=== PATIENT | female | born 1955 | race Caucasian/White ===

== ENCOUNTER 2019-04-08 07:16 | Inpatient (IN) ==
--- NOTE | 2019-03-18 10:37 | PAT Medication Instructions ---
Medication Instructions Date of Service March 18, 2019 Home Medications acetaminophen 1,500 mg PO Q6H PRN atorvastatin 20 mg PO PM duloxetine 60 mg PO QPM lisinopril 10 mg PO QPM meloxicam 15 mg PO QPM omeprazole 40 mg PO QPM pramipexole [Mirapex] 0.5 mg PO DAILY ASK your surgeon for instructions meloxicam 15 mg PO QPM STOP taking 24 hours before surgery pramipexole [Mirapex] 0.5 mg PO DAILY Take morning of surgery With a small sip of water, OTHERWISE NOTHING TO EAT OR DRINK AFTER MIDNIGHT: acetaminophen 1,500 mg PO Q6H PRN (okay to take up to 4 hours prior to surgery if needed) Take evening before surgery acetaminophen 1,500 mg PO Q6H PRN (if needed) atorvastatin 20 mg PO PM duloxetine 60 mg PO QPM lisinopril 10 mg PO QPM omeprazole 40 mg PO QPM Other Notes If you have any questions please call us at [phone] or [phone] or [phone] or [phone]
--- NOTE | 2019-03-19 13:59 | Anesthesiology Consultation ---
Date of Service March 19, 2019 Assessment & Plan (1) Encounter for pre-operative examination: Chart Review Chart Review: Acceptable Risk for Surgery and Patient seen in Pre Admission Testing Teaching & Discussion Pre-Anesthesia Teaching/Discussion Notes: Instructed NPO after midnight before surgery,except medications with 15 cc of water. Medication instructions provided according to the PAT guidelines. History Surgery Operation Date: 04/08/19 07:45 Proposed Procedures p L2-S1 Decompression and Fusion, Spinal Cord Monitoring - Ziyad Galvez DO Height/Weight Height: 5 ft Weight: 82.6 kg Allergies Allergy/AdvReac Type Severity Reaction Status Date / Time nickel Allergy Unknown RASH Verified 03/13/19 13:19 Penicillins Allergy Unknown HIVES Verified 03/13/19 13:19 Additional Notes: *Surgeon office/OR made aware of nickel reaction* Medications Home Medications Medication Instructions Recorded Confirmed Last Taken acetaminophen 1,500 mg PO Q6H PRN 03/13/19 03/13/19 Unknown atorvastatin 20 mg PO PM 03/13/19 03/13/19 Unknown duloxetine 60 mg PO QPM 03/13/19 03/13/19 Unknown lisinopril 10 mg PO QPM 03/13/19 03/13/19 Unknown meloxicam 15 mg PO QPM 03/13/19 03/13/19 Unknown omeprazole 40 mg PO QPM 03/13/19 03/13/19 Unknown pramipexole [Mirapex] 0.5 mg PO DAILY 03/13/19 03/13/19 Unknown Past Medical History Medical History Anxiety GERD (gastroesophageal reflux disease) controlled Hyperlipidemia Hypertension Obesity Restless leg syndrome Spinal stenosis Spondylolisthesis Exercise / Class Metabolic Activity III < 4 Walking/Shop/Light housework Past Surgical History Surgical History History of bunionectomy of both great toes History of carpal tunnel surgery of right wrist History of open reduction and internal fixation (ORIF) procedure LEFT History of partial hysterectomy History of total right knee replacement History of trigger finger X2 REPAIR Past Anesthesia History No Hx of Anesthesia Complications (except post-op nausea) and No Family Hx of Anesthesia Complications History of PONV No Hx of Motion Sickness and History of PONV (+ nausea) Social History Smoking Status: Never smoker Do You Dip or Chew Tobacco: No Hx Alcohol Use: No Hx Substance Use: No Review of Systems Patient denies chest pain, shortness of breath, cough, wheezing, palpitations. Physical Exam Vital Signs VITALS BP 134/83 P 94 TEMP 98.2 SP02 94%RA RESP 16 PHYSICAL Full neck and c-spine range of motion. Full TMJ range of motion. TMD 3.5 finger breaths Mallampati Score 1 Dentition: missing side, upper front bridge Lungs: clear throughout to auscultation Cardiac: regular rate and rhythm, no murmurs noted Spine: normal Carotid arteries: negative bruit Extremities: no edema Testing Laboratory Results 03/19/19 14:17 03/19/19 14:17 PT 10.1 Seconds (9.0-12.0) 03/19/19 14:17 INR 1.0 (0.9-1.1) 03/19/19 14:17 APTT 25.2 Seconds (21.0-31.0) 03/19/19 14:17 Urine Color Dark Yellow 03/19/19 14:17 Urine Appearance Clear (Clear) 03/19/19 14:17 Urine pH 5.0 (4.5-7.5) 03/19/19 14:17 Ur Specific Elizabeth 1.037 (1.000-1.030) H 03/19/19 14:17 Urine Protein Negative (Negative) 03/19/19 14:17 Urine Glucose (UA) Negative (Negative) 03/19/19 14:17 Urine Ketones Negative (Negative) 03/19/19 14:17 Urine Nitrite Negative (Negative) 03/19/19 14:17 Ur Leukocyte Esterase Negative (Negative) 03/19/19 14:17 Blood Type O Positive 03/19/19 14:17 Antibody Screen NEGATIVE 03/19/19 14:17 Electrocardiogram Date: 03/19/19 Findings: + NSR @ (88) Chest X-Ray Date: 03/19/19 There is no acute cardiopulmonary abnormality. An apparent density at the medial right lung base is likely artifactual. A repeat examination in one month's time is recommended for reassessment. Report sent to PCP for their reference.
--- NOTE | 2019-03-19 14:53 | XRay Report ---
TWO VIEW CHEST CLINICAL HISTORY: Preoperative examination. FINDINGS: PA and lateral chest radiographs are compared to study dated 12/24/2015. The cardiomediasti nal silhouette is unremarkable. There is no airspace consolidation typical for pneumonia or pleural e ffusion. Mild atelectasis is noted at the lung bases. An apparent density at the medial right lung ba se is likely artifactual. There is no pneumothorax. The skeletal structures are osteopenic. Degenerat jessie change and scoliosis are noted in the thoracic spine. The bony thorax appears intact. IMPRESSION: 1. There is no acute cardiopulmonary abnormality. 2. An apparent density at the medial right lung base is likely artifactual. A repeat examination in o ne month's time is recommended for reassessment. ACT 112: Negative or not required by law. Electronically signed by: Brady Rosenthal M.D. 03/19/2019 2:51 PM
[2019-03-19 14:54] LABS: Basophils # (auto) 0.01 K/uL (0-0.2); Basophils % (auto) 0.2 %; Eosinophils # (auto) 0.12 K/uL (0-0.5); Eosinophils % (auto) 2.3 %; Hematocrit (blood only) 43.8 % (37-47); Hemoglobin 14.7 g/dL (12.0-16.0); Immature Granulocytes # (auto) 0.01 K/uL (0.00-0.02); Immature Granulocytes % (auto) 0.2 %; Lymphocytes # (auto) 1.41 K/uL (1.2-3.4); Lymphocytes % (auto) 26.5 %; Mean Corpuscular Hgb Conc 33.6 g/dL (32-36); Mean Corpuscular Volume 92.4 fL (80-100); Mean Platelet Volume 10.9 fL (7.4-10.4); Monocytes # (auto) 0.18 K/uL (0.11-0.59); Monocytes % (auto) 3.4 %; Neutrophils % (auto) 67.4 %; Platelet Count 208 K/uL (130-400); RDW Standard Deviation 47.7 fL (36.4-46.3); Red Blood Count 4.74 M/uL (4.2-5.4); White Blood Count 5.33 K/uL (4.8-10.8)
[2019-03-19 14:55] LABS: Appearance Urine Clear (Clear); Bilirubin Urine Negative (Negative); Blood Urine Negative (Negative); Color Urine Dark Yellow; Glucose Urine UA Negative (Negative); Ketones Urine Negative (Negative); Leukocyte Esterase Urine Negative (Negative); Nitrite Urine Negative (Negative); Protein Urine Negative (Negative); Specific Gravity Urine 1.037 (1.000-1.030); Urobilinogen Urine Negative (Negative)
[2019-03-19 15:05] LABS: Partial Thromboplastin Ratio 0.9; Partial Thromboplastin Time 25.2 Seconds (21.0-31.0); Prothrombin Time 10.1 Seconds (9.0-12.0)
[2019-03-19 15:11] LABS: BUN Creatinine Ratio 28.1 (10-20); Calcium 9.3 mg/dl (8.5-10.1); Est GFR (African American) 101.3; Est GFR (Non-African American) 87.4
--- NOTE | 2019-03-19 15:22 | Electrocardiogram Report ---
Test Reason : Blood Pressure : / mmHG Vent. Rate : 088 BPM Atrial Rate : 088 BPM P-R Int : 148 ms QRS Dur : 082 ms QT Int : 372 ms P-R-T Axes : 062 002 011 degrees QTc Int : 450 ms Normal sinus rhythm Normal ECG When compared with ECG of 24-DEC-2015 15:15, No significant change was found Confirmed by Jorge Burger ([id number]) on 03/19/2019 3:21:49 PM Referred By: Ziyad Galvez Confirmed By:Jorge Burger
[~2019-04-08 07:16] MED LIST: CLINDAMYCIN 600 MG/54 ML BAG IV SCH; GABAPENTIN 600 MG DOSE PO SCH; LACTATED RINGER'S 1,000 ML IV SCH
[2019-04-08] MEDS ORDERED: MIDAZOLAM HCL 1 MG/ML 2ML VIAL ONE (08:10)
[2019-04-08] MEDS ORDERED: fentaNYL citrate 100 MCG/2 ML VIAL ONE (08:10)
[2019-04-08] MEDS ORDERED: ePHEDrine sulfate 50 MG/ML AMP IV PRN (08:44)
[2019-04-08] MEDS ORDERED: ONDANSETRON INJ 2 MG/ML 2 ML VIAL IV PRN ×2 (08:44→14:12)
[2019-04-08] MEDS ORDERED: HYDROmorphone INJ 2 MG/ML SYR/VIAL IV PRN (08:44)
[2019-04-08] MEDS ORDERED: METOCLOPRAMIDE HCL INJ 5 MG/ML 2 ML VIAL IV PRN ×2 (08:44→14:12)
[2019-04-08] MEDS ORDERED: ATROPINE SULFATE 0.1 MG/ML 10ML SYR IV PRN (08:44)
[2019-04-08] MEDS ORDERED: PROMETHAZINE HCL 12.5 MG in SODIUM CHLORIDE 0.9% 50 ML IV PRN ×2 (08:44→14:12)
--- NOTE | 2019-04-08 09:00 | History & Physical Bridge Note ---
Date of Service April 08, 2019 History & Physical Bridge Note I have examined the patient, reviewed the History & Physical and in the interval since the performance of the History & Physical I have noted the following changes of clinical significance: no changes noted
--- NOTE | 2019-04-08 09:02 | History & Physical Report ---
Date of Service April 08, 2019 Assessment & Plan (1) Neurogenic claudication due to lumbar spinal stenosis: L2-S1 decompression fusion Present on Admission?: Yes History of Present Illness Chief Complaint: Back and leg pain Primary Care Provider: Lulú Nowak PA-C This is a 63-year-old female that presents with chronic persistent back and leg pain after failing course of nonoperative care is here for surgical invention. Allergies Allergy/AdvReac Type Severity Reaction Status Date / Time nickel Allergy Unknown RASH Verified 04/08/19 07:53 Penicillins Allergy Unknown HIVES Verified 04/08/19 07:53 Home Medications Home Medications Medication Instructions Recorded Confirmed Type acetaminophen 1,500 mg PO Q6H PRN 03/13/19 04/08/19 History atorvastatin 20 mg PO PM 03/13/19 04/08/19 History duloxetine 60 mg PO QPM 03/13/19 04/08/19 History lisinopril 10 mg PO QPM 03/13/19 04/08/19 History meloxicam 15 mg PO QPM 03/13/19 04/08/19 History omeprazole 40 mg PO QPM 03/13/19 04/08/19 History pramipexole [Mirapex] 0.5 mg PO DAILY 03/13/19 04/08/19 History Past Med/Surg History Medical History Anxiety GERD (gastroesophageal reflux disease) controlled Hyperlipidemia Hypertension Obesity Restless leg syndrome Spinal stenosis Spondylolisthesis Surgical History History of bunionectomy of both great toes History of carpal tunnel surgery of right wrist History of open reduction and internal fixation (ORIF) procedure LEFT History of partial hysterectomy History of total right knee replacement History of trigger finger X2 REPAIR Social History Preferred Language: [place]at[place] Communication Ability: Effective Beliefs That Will Affect Care: None Current Living Situation: Spouse Feels Safe at Home: Yes Safety Concerns: Feels Safe At This Time Smoking Status: Never smoker Do You Dip or Chew Tobacco: No ; Second Hand Exposure: No ; Hx Alcohol Use: No Hx Substance Use: No Physical Exam Physical Exam: Patient is alert and oriented neurologically intact. Results & Data Vital Signs (Past 12 Hours) Vital Signs Temp Pulse Resp BP Pulse Ox 04/08/19 07:57 36.5 C 82 16 144/88 H 97
[2019-04-08] MEDS ORDERED: BACITRACIN INJ 50,000 UNIT VIAL ONE (09:06)
[2019-04-08] MEDS ORDERED: BUPIVACAINE/EPINEPHRINE 0.5% MPF 1:200,000 10 ML VIAL ONE (09:06)
[2019-04-08] MEDS ORDERED: HYDROmorphone INJ 2 MG/ML SYR/VIAL ONE (10:01)
[2019-04-08] MEDS ORDERED: LARYING-O-JET KIT (LTA) ONE (10:04)
[2019-04-08] MEDS ORDERED: LIDOCAINE HCL 2% 2 ML VIAL/AMP(20MG/ML) INFIL ONE (10:04)
[2019-04-08] MEDS ORDERED: PROPOFOL IV EMULSION 10 MG/ML 20 ML VIAL IV ONE (10:04)
[2019-04-08] MEDS ORDERED: PHENYLEPHRINE HCL 10 MG/ML VIAL ONE (10:04)
[2019-04-08] MEDS ORDERED: GLYCOPYRROLATE 0.2 MG/ML VIAL ONE (10:04)
[2019-04-08] MEDS ORDERED: ROCURONIUM BROMIDE 10 MG/ML 5 ML VIAL ONE (10:04)
[2019-04-08] MEDS ORDERED: ePHEDrine sulfate 50 MG/ML SYR ONE (10:04)
[2019-04-08] MEDS ORDERED: ONDANSETRON INJ 2 MG/ML 2 ML VIAL ONE (10:04)
[2019-04-08] MEDS ORDERED: NEOSTIGMINE METHYLSULFATE 1 MG/ML 10ML VIAL ONE (10:04)
[2019-04-08] MEDS ORDERED: DEXAMETHASONE SOD INJ 4 MG/ML VIAL ONE (10:04)
[2019-04-08] MEDS ORDERED: FLOSEAL HEMOSTATIC MATRIX 10ML TOP ONE (10:08)
--- NOTE | 2019-04-08 12:19 | Operative Report ---
Post Operative Report Pre & Post Diagnosis Operation Date: 04/08/19 09:05 Pre-Op Diagnosis: Lumbar spinal stenosis with neurogenic claudication Post-Op Diagnosis: Number spinal stenosis with neurogenic claudication I identified the patient and participated in the time-out.: Yes Procedure Operation Date: 04/08/19 09:05 Actual Procedures #1 lumbar decompression with bilateral medial facetectomies and foraminotomies L2-3, L3-4, L4-5 and L5-S1. #2 posterior spinal fusion L3-4, L4-5 and L5-S1. #3 placement posterior instrumentation L2-3 L3-4 L4-5 L5-S1. #4 interbody fusion L3-4 and L4-5. #5 placed a peek cage 8 x 22 mm at L3-4 and 11 x 22 mm at L5-S1. #6 placement locally harvested morselized autograft in the posterior lateral gutters. #7 placement infuse collagen sponge, master graft in the posterior lateral gutters and ostial amp interbody space. Surgeon Ziyad Galvez, DO Lip And Gate Builder Mahogany Hedrick Estimated Blood Loss 400 Findings See Below The patient is 5 foot tall weighing over 82 kg with a BMI in excess of 35. The patient's body habitus did add significant technical difficulty throughout the rectus procedure requiring her deepest retractors and longest instruments in order to perform her surgery. This added at least 25% increase to the operative time. Specimens None Indications This is a 63-year-old female who presents above-mentioned diagnosis after failing extensive course of nonoperative care elected to go with above-mentioned procedure. Description of Procedure Patient was met with identified informed consent obtained. Patient was then taken to the operative suite underwent intubation placed in a prone position the Lucas table on top of the Nasim frame. All bony prominences well-padded eyes inspected to ensure no external pressure placed upon the bed at this point the lumbar spine was prepped and draped in a sterile fashion. Sharp dissection with the assistance of Bovie cautery was performed down to and exposing the lamina and transverse processes of L2-L3-L4 L5 and the sacral ala bilaterally. From caudal cephalad fashion complete laminectomy of L5 L4 L3 and partial laminectomy of L2 was performed including bilateral medial facetectomies and foraminotomies addressing severe stenosis. Pedicle screws were then placed in L3-L4-L5 and the S1 levels bilaterally with assistance of fluoroscopy the purposes santiago placed. Believe a transforaminal approach and left complete discectomy of L5-S1 was performed endplates curetted to subcortical bleeding bone and a 11 x 22 mm peek cage filled with osteo-bone graft tapped position. I was not pleased with the position of the implant I felt it was too anterior however multiple attempts to pull the cage posterior failed and succeeded and only propagating the cage further anterior. Was located centrally there is no evidence of any vessel compression at this level. Subsequently opted to leave the cage in place versus any further damage. Then proceeded to L3-4 and again on the left complete discectomy performed endplates curetted to subcortical bleeding bone and this time an 8 x 22 mm peek cage with osteo-bone graft tapped in position. The rods were then locked into final position bilaterally. The transverse processes of L3-L4-L5 and the sacral ala burred to subcortical bleeding bone. Infuse collagen sponge master graft local autograft was then placed in the posterior lateral gutters. 15 round CIRA drain inserted. The incision was then closed with 1 Vicryl in the fascia 2-0 Vicryl subcutaneously and 4 Monocryl for final skin closure. Steri-Strip sterile dressings placed. Patient will continue to PACU stable condition. Please note Mahogany Hedrick present at the entire procedure involved the patient positioning complex portions of the surgery and final skin closure. Lastly spinal cord monitoring was utilized that the procedure no sosa ges noted. I attest to the content of the Intraoperative Record and any orders documented therein. Any exceptions are noted below.
--- NOTE | 2019-04-08 12:51 | Fluoroscopy Report ---
INTRAOPERATIVE RADIOGRAPHS CLINICAL HISTORY: L3-S1 spinal fusion. Fluoroscopy time: 36 seconds. FINDINGS: 2 spot fluoroscopic views of the lumbar spine are presented. There is been laminectomy with posterior fusion seen from L3-S1. There is been discectomy at L3-L4 and L5-S1. The orthopedic hardwa re appears intact. IMPRESSION: Intraoperative images from L3-S1 spinal fusion as above. Electronically signed by: Brady Rosenthal M.D. 04/08/2019 12:49 PM
[2019-04-08] MEDS: fentaNYL citrate 100 MCG/2 ML VIAL IV PRN ×3 (12:56→13:11)
[2019-04-08] MEDS ORDERED: ALUMINUM/MAGNESIUM SUSP 30 ML UDC PO PRN (14:12)
[2019-04-08] MEDS ORDERED: DO NOT ADMINISTER FLU VACCINE PRN (14:12)
[2019-04-08] MEDS ORDERED: HYDROmorphone INJ 0.5 MG/0.5 ML SYR IV PRN (14:12)
[2019-04-08] MEDS ORDERED: MAGNESIUM HYDROXIDE SUSP 30 ML UDC PO PRN (14:12)
[2019-04-08] MEDS ORDERED: ACETAMINOPHEN 500 MG TAB PO PRN (14:12)
[2019-04-08] MEDS ORDERED: bisacodyL 10 MG SUPP PR PRN (14:12)
[2019-04-08] MEDS ORDERED: SOD PHOSPHATE/SOD BIPHOSPHATE ENEMA 132 ML BTL PR PRN (14:12)
[2019-04-08] MEDS ORDERED: HYDROmorphone INJ 1 MG/ML SYRINGE IV PRN (14:12)
[2019-04-08] MEDS ORDERED: FAMOTIDINE 20 MG TAB PO PRN (14:12)
[2019-04-08] MEDS ORDERED: NALOXONE HCL 0.4 MG/1 ML VIAL/CARP IV PRN (14:12)
[2019-04-08] MEDS ORDERED: LORazepam 0.5 MG TAB PO PRN (14:12)
[2019-04-08] MEDS ORDERED: ACETAMINOPHEN 1,000 MG/100 ML VIAL IV PRN (14:12)
[2019-04-08] MEDS ORDERED: DO NOT ADMINISTER PNEUMOCOCCAL VACCINE PRN (14:12)
[2019-04-08] MEDS ORDERED: LORazepam 0.5 MG/1 ML VIAL IV PRN (14:12)
--- NOTE | 2019-04-08 14:24 | Anesthesiology Progress Note ---
Date of Service April 08, 2019 Anesthesia Post Procedure Vital Signs Vital Signs: Temp Pulse Pulse Pulse Resp BP Pulse Ox 04/08/19 13:55 36.6 C 93 H 16 119/74 92 04/08/19 13:30 83 12 119/71 93 04/08/19 13:20 36.8 C 69 14 104/71 95 04/08/19 13:10 78 16 104/69 95 04/08/19 13:00 58 L 16 106/64 95 04/08/19 12:50 70 16 94/44 L 96 04/08/19 12:40 77 16 94/46 L 98 04/08/19 12:33 36.3 C L 69 16 87/50 L 100 04/08/19 07:57 36.5 C 82 16 144/88 H 97 Pain Intensity Left Hip: Pain Intensity: 0 Bilateral Back: Pain Intensity: 7 Transfer of Care Handoff Completed per policy Notes Mental Status: alert / awake / arousable and participated in evaluation Patient Amnestic to Procedure: Yes Nausea / Vomiting: adequately controlled Pain: adequately controlled Airway Patency, RR, SpO2: stable & adequate BP & HR: stable & adequate Hydration State: stable & adequate Anesthetic Complications: no major complications apparent
[2019-04-08] MEDS: LACTATED RINGER'S 1,000 ML IV SCH (14:49)
[2019-04-08] MEDS: KETOROLAC TROMETHAMINE 15 MG/ML VIAL IV SCH ×2 (15:32→21:46)
[2019-04-08] MEDS: CLINDAMYCIN 600 MG in DEXTROSE 5% 50 ML IV SCH (15:32)
--- NOTE | 2019-04-08 16:14 | Hospitalist Consultation ---
Date of Consultation April 08, 2019 Assessment & Plan (1) Neurogenic claudication due to lumbar spinal stenosis: - POD#0 L2-S1 decompression and fusion by Dr. Galvez - activity and wound care orders as per ortho - pain control with bowel regimen - PT/OT - monitor H/H for acute blood loss anemia and transfuse blood products PRN - EBL 400 cc (2) Hypertension: -BP borderline low, will hold lisinopril and reevaluate tomorrow (3) Hyperlipidemia: -Continue statin (4) GERD (gastroesophageal reflux disease): -Continue PPI (5) Anxiety: (6) Depression: -Continue Cymbalta -Nurse reported that upon protocol suicide screen on admission, patient had reported thoughts of suicide however no plan. Patient denies this to me. Mental health consult placed per protocol. (7) DVT prophylaxis: -Teds/SCDs as per spine orthopedics Thank you for this consultation. We will follow the patient with you during their hospital stay. You can reach a [facility] via pager @ [phone]. 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 Galvez Attending Physician: Dr. Vanegas History of Present Illness 63-year-old female who is status post L2-S1 decompression and fusion today by Dr. Galvez. Postoperatively, the patient is doing well. She reports that she is having some postoperative incisional pain however it is currently controlled. Denies numbness or tingling to lower extremities. No chest pain or shortness of breath. Denies lightheadedness and dizziness. No abdominal pain or nausea. Sheikh catheter is in place draining clear yellow urine. Allergies Allergy/AdvReac Type Severity Reaction Status Date / Time nickel Allergy Unknown RASH Verified 04/08/19 07:53 Penicillins Allergy Unknown HIVES Verified 04/08/19 07:53 Home Medications Home Medications Medication Instructions Recorded Confirmed Type acetaminophen 1,500 mg PO Q6H PRN 03/13/19 04/08/19 History atorvastatin 20 mg PO PM 03/13/19 04/08/19 History duloxetine 60 mg PO QPM 03/13/19 04/08/19 History lisinopril 10 mg PO QPM 03/13/19 04/08/19 History meloxicam 15 mg PO QPM 03/13/19 04/08/19 History omeprazole 40 mg PO QPM 03/13/19 04/08/19 History pramipexole [Mirapex] 0.5 mg PO DAILY 03/13/19 04/08/19 History Patient History Medical History Anxiety Depression GERD (gastroesophageal reflux disease) controlled Hyperlipidemia Hypertension Obesity Restless leg syndrome Spinal stenosis Spondylolisthesis Surgical History History of bunionectomy of both great toes History of carpal tunnel surgery of right wrist History of open reduction and internal fixation (ORIF) procedure LEFT History of partial hysterectomy History of total right knee replacement History of trigger finger X2 REPAIR Family History Mother Breast cancer Social History Preferred Language: Kazakh Communication Ability: Effective Beliefs That Will Affect Care: None Current Living Situation: Spouse Feels Safe at Home: Yes Safety Concerns: Feels Safe At This Time Smoking Status: Never smoker Do You Dip or Chew Tobacco: No ; Second Hand Exposure: No ; Hx Alcohol Use: No Hx Substance Use: No Review of Systems Review of Systems: ROS per HPI, all other systems reviewed and negative Physical Exam Constitutional: WD/WN, vitals as above Eyes: PERRL, conjunctivae normal, anicteric sclerae ENMT: external ear and nose normal, oropharynx normal Respiratory: normal respiratory effort, lungs clear to auscultation Cardiovascular: Rate/Rhythm: regular rate and regular rhythm Vessels: normal peripheral pulses Extremities: no edema Gastrointestinal (Abdomen): normal bowel sounds, soft, nontender, no hepatosplenomegaly Musculoskeletal: no cyanosis or clubbing, extremities motor strength 5/5 S/p back surgery, pedal pushes and pulls strong bilaterally, drain in place draining bloody drainage Skin: no rashes, warm and dry Neurologic: PERRL, EOMI, accommodation nl, no face palsy, no dysarthria Psychiatric: A+Ox3, euthymic affect Results & Data ([facility]) Vital Signs (Past 12 Hours) Vital Signs Temp Pulse Pulse Pulse Resp BP Pulse Ox 04/08/19 14:55 36.2 C L 81 12 99/68 L 95 04/08/19 14:29 81 16 91/60 L 96 04/08/19 13:55 36.6 C 93 H 16 119/74 92 04/08/19 13:30 83 12 119/71 93 04/08/19 13:20 36.8 C 69 14 104/71 95 04/08/19 13:10 78 16 104/69 95 04/08/19 13:00 58 L 16 106/64 95 04/08/19 12:50 70 16 94/44 L 96 04/08/19 12:40 77 16 94/46 L 98 04/08/19 12:33 36.3 C L 69 16 87/50 L 100 04/08/19 07:57 36.5 C 82 16 144/88 H 97
[2019-04-08] MEDS ORDERED: LACTATED RINGER'S 500 ML IV ONE ×2 (19:14→20:13)
[2019-04-08 19:39] LABS: Hematocrit (blood only) 38.1 % (37-47); Hemoglobin 12.3 g/dL (12.0-16.0)
[2019-04-08] MEDS: ATORVASTATIN 20 MG TAB PO SCH (20:23)
[2019-04-08] MEDS: DULOXETINE HCL 60 MG CAP PO SCH (20:24)
[2019-04-08] MEDS: PANTOprazole 40 MG TAB PO SCH (20:24)
[2019-04-08] MEDS: DOCUSATE SODIUM/SENNA 50/8.6MG TAB PO SCH (20:24)
[2019-04-08] MEDS ORDERED: lisinopriL 10 MG TAB PO SCH (21:00)
[2019-04-09] MEDS ORDERED: PRAMIPEXOLE DIHYDROCHLO 0.5 MG TAB PO STA (00:08)
[2019-04-09] MEDS: CLINDAMYCIN 600 MG in DEXTROSE 5% 50 ML IV SCH (00:26)
[2019-04-09] MEDS: TRAMADOL HCL 50 MG TABLET PO PRN (00:45)
[2019-04-09] MEDS: LACTATED RINGER'S 1,000 ML IV SCH ×2 (01:25→10:44)
[2019-04-09] MEDS: KETOROLAC TROMETHAMINE 15 MG/ML VIAL IV SCH ×2 (03:55→08:48)
[2019-04-09] MEDS: POLYETHYLENE (MIRALAX) 17 GM PACK PO SCH ×3 (05:27→17:08)
[2019-04-09 07:01] LABS: Hematocrit (blood only) 31.5 % (37-47); Hemoglobin 10.2 g/dL (12.0-16.0); Immature Granulocytes # (auto) 0.02 K/uL (0.00-0.02); Immature Granulocytes % (auto) 0.1 %; Lymphocytes # (auto) 0.85 K/uL (1.2-3.4); Lymphocytes % (auto) 6.3 %; Mean Corpuscular Hemoglobin 30.5 pg (25-34); Mean Corpuscular Hgb Conc 32.4 g/dL (32-36); Mean Corpuscular Volume 94.3 fL (80-100); Mean Platelet Volume 10.2 fL (7.4-10.4); Monocytes # (auto) 0.53 K/uL (0.11-0.59); Monocytes % (auto) 3.9 %; Neutrophils # (auto) 12.12 K/uL (1.4-6.5); Neutrophils % (auto) 89.7 %; Platelet Count 174 K/uL (130-400); RDW Coefficient of Variation 14.6 % (11.5-14.5); RDW Standard Deviation 50.3 fL (36.4-46.3); Red Blood Count 3.34 M/uL (4.2-5.4); White Blood Count 13.52 K/uL (4.8-10.8)
[2019-04-09 07:38] LABS: BUN Creatinine Ratio 24.2 (10-20); Calcium 8.3 mg/dl (8.5-10.1); Creatinine Clr Calc Pharmacy 74.8 ml/min; Est GFR (African American) 99.7; Potassium 4.1 mmol/L (3.5-5.1)
--- NOTE | 2019-04-09 08:08 | Anesthesiology Progress Note ---
Date of Service April 09, 2019 Anesthesia Post Procedure Vital Signs Vital Signs: Temp Pulse Pulse Pulse Resp BP BP 04/09/19 07:54 96/59 L 04/09/19 07:32 104/70 04/09/19 07:00 36.7 C 86 16 90/57 L 04/09/19 03:17 36.8 C 89 20 93/59 L 04/09/19 00:30 36.7 C 116 H 20 108/72 04/08/19 23:12 36.8 C 104 H 20 95/61 L 04/08/19 21:43 76 96/61 L 04/08/19 21:05 106 H 122/67 04/08/19 20:01 96 H 83/53 L 90/57 L 04/08/19 19:02 82/52 L 74/45 L 04/08/19 18:56 36.4 C L 82 16 63/37 L 04/08/19 17:10 92 H 93/61 L 04/08/19 17:06 99/62 L 04/08/19 17:03 36.5 C 84 16 82/55 L 04/08/19 15:55 36.3 C L 71 12 90/58 L 04/08/19 14:55 36.2 C L 81 12 99/68 L 04/08/19 14:29 81 16 91/60 L 04/08/19 13:55 36.6 C 93 H 16 119/74 04/08/19 13:30 83 12 119/71 04/08/19 13:20 36.8 C 69 14 104/71 04/08/19 13:10 78 16 104/69 04/08/19 13:00 58 L 16 106/64 04/08/19 12:50 70 16 94/44 L 04/08/19 12:40 77 16 94/46 L 04/08/19 12:33 36.3 C L 69 16 87/50 L Pulse Ox 04/09/19 07:54 04/09/19 07:32 04/09/19 07:00 97 04/09/19 03:17 91 04/09/19 00:30 94 04/08/19 23:12 91 04/08/19 21:43 04/08/19 21:05 04/08/19 20:01 04/08/19 19:02 04/08/19 18:56 94 04/08/19 17:10 04/08/19 17:06 04/08/19 17:03 97 04/08/19 15:55 95 04/08/19 14:55 95 04/08/19 14:29 96 04/08/19 13:55 92 04/08/19 13:30 93 04/08/19 13:20 95 04/08/19 13:10 95 04/08/19 13:00 95 04/08/19 12:50 96 04/08/19 12:40 98 04/08/19 12:33 100 Pain Intensity Left Hip: Pain Intensity: 0 Bilateral Back: Pain Intensity: 6 Notes Mental Status: alert / awake / arousable and participated in evaluation Patient Amnestic to Procedure: Yes Nausea / Vomiting: adequately controlled Pain: adequately controlled Airway Patency, RR, SpO2: stable & adequate BP & HR: stable & adequate Hydration State: stable & adequate Anesthetic Complications: no major complications apparent and Pt Satisfied with anesthetic care
[2019-04-09] MEDS ORDERED: PRAMIPEXOLE DIHYDROCHLO 0.5 MG TAB PO SCH (09:00)
--- NOTE | 2019-04-09 09:52 | Hospitalist Progress Note ---
Date of Service April 09, 2019 Assessment & Plan (1) Neurogenic claudication due to lumbar spinal stenosis: - POD#1 L2-S1 decompression and fusion by Dr. Galvez - activity and wound care orders as per ortho - pain control with bowel regimen - PT/OT - monitor H/H for acute blood loss anemia and transfuse blood products PRN - EBL 400 cc (2) Hypertension: -BP borderline low, Bolus today then resume LR at 100, will hold lisinopril (3) Hyperlipidemia: -Continue statin (4) GERD (gastroesophageal reflux disease): -Continue PPI (5) Anxiety: (6) Depression: -Continue Cymbalta -Nurse reported that upon protocol suicide screen on admission, patient had reported thoughts of suicide however no plan. Patient denies this to me. Mental health consult placed per protocol. (7) DVT prophylaxis: -Teds/SCDs as per spine orthopedics Labs Checked ROS-No Headache, No Visual Changes, No Nausea, No Vomiting, No Fever, No Chills, No Neck Pain or Stiffness, No Chest Pain, No Palpitations, No SOB, No RAMOS, No Cough, No Sputum, No Wheezing, No Abdominal Pain, No Diarrhea, No Hematemesis, No Hemoptysis, No Unexpected Weight Loss, No Flank pain, No Melena, No Hematochezia, No Frequency, No Urgency, No Burning, No Hematuria, No Rashes, No Diaphoresis. Appetite is Normal, c/o sore back Physical Exam Gen-AAO x 3, NAD, Afebrile, obese Head-NCAT, EOMI, PERRLA, Anicteric Sclera, No Posterior Pharyngeal Erythema Neck-Supple, No JVD, No Thyromegaly, No Masses, No LAD, No Bruits Lungs-Clear to Auscultation Bilaterally, No Rales, No Rhonchi, No Wheezing, No Crepitus Chest-No S4, +S1, +S2, No S3, No Murmurs, No Rubs, No Gallops, No Ectopy Abdomen-Soft, Bowel Sounds Present, Non Tender, Non Distended, No Hepatomegaly, No Splenomegaly, No Palpable Masses, No Rebound, No Rigidity, No Guarding Musculoskeletal-Full Range of Motion Bilaterally, No CVAT Extremities-No Cyanosis, No Clubbing, No Edema Nuero-Cranial Nerves II-XII grossly intact, Motor WNL, DTRs WNL, Strength WNL, Non Focal Psych-Normal Mood. Admission and Anticipated Discharge Date Admission Date: April 08, 2019 Anticipated date of discharge: 04/11/19 Results & Data ([facility]) Vital Signs (Past 12 Hours) Vital Signs Temp Pulse Resp BP BP Pulse Ox 04/09/19 07:54 96/59 L 04/09/19 07:32 104/70 04/09/19 07:00 36.7 C 86 16 90/57 L 97 04/09/19 03:17 36.8 C 89 20 93/59 L 91 04/09/19 00:30 36.7 C 116 H 20 108/72 94 04/08/19 23:12 36.8 C 104 H 20 95/61 L 91
[2019-04-09] MEDS: OXYCODONE HCL IR 5 MG TAB (IMMEDIATE RELEASE) PO PRN ×2 (10:48→17:07)
[2019-04-09] MEDS: PRAMIPEXOLE DIHYDROCHLO 0.5 MG TAB PO SCH ×2 (11:54→20:13)
--- NOTE | 2019-04-09 13:41 | Orthopedic Progress Note ---
Date of Service April 09, 2019 Assessment & Plan (1) Neurogenic claudication due to lumbar spinal stenosis: At this time will initiate bed to chair as tolerated. Monitor her blood pressure and hopefully initiate physical therapy tomorrow. Present on Admission?: Yes Admission and Anticipated Discharge Date Admission Date: April 08, 2019 Anticipated date of discharge: 04/11/19 Subjective Patient's back pain is controlled. She denies any leg pain. Denies abdominal pain or nausea or vomiting. She is quite comfortable lying supine. Is able to sit up beside the bed but is been hypotensive since last evening. Physical Exam Physical Exam: On exam she has excellent strength testing full sensation to the lower extremities. She appears comfortable. Results & Data ([facility]) Vital Signs (Past 12 Hours) Vital Signs Temp Pulse Resp BP BP Pulse Ox 04/09/19 12:56 94 04/09/19 10:55 36.7 C 93 H 18 88/56 L 94 04/09/19 07:54 96/59 L 04/09/19 07:32 104/70 04/09/19 07:00 36.7 C 86 16 90/57 L 97 04/09/19 03:17 36.8 C 89 20 93/59 L 91
[2019-04-09] MEDS: PANTOprazole 40 MG TAB PO SCH (20:12)
[2019-04-09] MEDS: DOCUSATE SODIUM/SENNA 50/8.6MG TAB PO SCH (20:13)
[2019-04-09] MEDS: DULOXETINE HCL 60 MG CAP PO SCH (20:14)
[2019-04-09] MEDS: ATORVASTATIN 20 MG TAB PO SCH (20:14)
[2019-04-10] MEDS: POLYETHYLENE (MIRALAX) 17 GM PACK PO SCH ×4 (00:26→17:58)
[2019-04-10] MEDS: OXYCODONE HCL IR 5 MG TAB (IMMEDIATE RELEASE) PO PRN (00:37)
[2019-04-10] MEDS: LACTATED RINGER'S 1,000 ML IV SCH ×2 (00:39→06:37)
[2019-04-10 08:03] LABS: Hematocrit (blood only) 32.7 % (37-47); Hemoglobin 10.4 g/dL (12.0-16.0)
[2019-04-10] MEDS: PRAMIPEXOLE DIHYDROCHLO 0.5 MG TAB PO SCH ×2 (12:25→21:13)
--- NOTE | 2019-04-10 12:59 | Orthopedic Progress Note ---
Date of Service April 10, 2019 Assessment & Plan (1) Neurogenic claudication due to lumbar spinal stenosis: This time we will continue physical therapy. I am going to obtain a CAT scan lumbar spine to thoroughly assess her instrumentation vertically the 5 1 interbody construct. We will maintain the CIRA drain today. Present on Admission?: Yes Admission and Anticipated Discharge Date Admission Date: April 08, 2019 Anticipated date of discharge: 04/11/19 Subjective Patient's back pain is controlled leg symptoms are improved. She tolerated ambulation well today. Physical Exam Physical Exam: Patient is in the chair at the bedside is good strength testing. Full sensation lower extremities. Results & Data ([facility]) Vital Signs (Past 12 Hours) Vital Signs Temp Pulse Resp BP BP Pulse Ox 04/10/19 12:01 37.0 C 105 H 19 112/74 92 04/10/19 07:55 36.9 C 110 H 18 108/72 93 04/10/19 01:40 116/74
[2019-04-10] MEDS: TRAMADOL HCL 50 MG TABLET PO PRN (18:02)
--- NOTE | 2019-04-10 19:09 | Hospitalist Progress Note ---
Date of Service April 10, 2019 Assessment & Plan (1) Post-operative state: Doing well post-operatively. Management per Ortho. (2) Neurogenic claudication due to lumbar spinal stenosis: s/p back surgery. Doing well. Ambulating. (3) Hypertension: postoperative hypotension. Cont holding lisinopril and monitor. (4) GERD (gastroesophageal reflux disease): Continue PPI (5) Depression: continue Cymbalta. Pt was seen by psychiatric liaison nurse and felt to be low risk. She appears stable emotionally to me today. We did not go into the details of these thoughts. Good outpatient support in place per PLN reports. (6) DVT prophylaxis: SCDs, recommend DVT prophlaxis post-operatively when OK with surgery Full Dispo-per Ortho Yari Buenrostro DO [facility] Hospitalist Admission and Anticipated Discharge Date Admission Date: April 08, 2019 Anticipated date of discharge: 04/11/19 Subjective doing well pain manageable ambulating drain in place tolerating PO but apathetic to food Review of Systems Review of Systems: All systems reviewed & are unremarkable except as noted in Subjective Physical Exam Physical Exam: CONSTITUTIONAL: WNWD, vitals as above, generally well- appearing EYES: normal conjunctivae, no scleral icterus ENT: external ear and nose normal,MMM RESPIRATORY: clear to auscultation bilaterally, no crackles, rales or wheezes, normal respiratory effort CARDIOVASCULAR: regular rate and rhythm, S1 and 2 heard without murmurs, gallops or rubs, no JVD, no peripheral edema GASTROINTESTINAL: normal bowel sounds, soft, nontender, nondistended MUSCULOSKELETAL: strength 5/5 throughout, head is normocephalic and atraumatic, lower back surgical site covered with dressing, CIRA drain in place with bloody fluid. SKIN: warm and dry NEUROLOGIC: CN 2-12 grossly intact, no sensory deficit, normal cognition, normal speech, no gross focal deficits PSYCHIATRIC: alert cooperative and oriented to person, place and time. Results & Data ([facility]) Vital Signs (Past 12 Hours) Vital Signs Temp Pulse Pulse Resp BP Pulse Ox 04/10/19 15:14 37.3 C 106 H 16 100/66 91 04/10/19 12:01 37.0 C 105 H 19 112/74 92 04/10/19 07:55 36.9 C 110 H 18 108/72 93 Laboratory Results Short CBC 04/10/19 Range/Units 07:48 Hgb 10.4 L (12.0-16.0) g/dL Hct 32.7 L (37-47) % Medications Administered Current Inpatient Medications Acetaminophen (Tylenol) 1,000 mg PO Q8H PRN PRN Reason: MILD Pain Scale 1,2,3 & Pre PT Stop: 05/08/19 14:11 Al Hydrox/Mg Hydrox/Simethicone (Maalox) 30 ml PO Q6H PRN PRN Reason: Dyspepsia Stop: 05/08/19 14:11 Last Admin: 04/09/19 00:13 Dose: 30 ml Documented by: Atorvastatin Calcium (Lipitor) 20 mg PO PM DELPHINE Stop: 05/08/19 20:59 Last Admin: 04/09/19 20:14 Dose: 20 mg Documented by: Bisacodyl (Dulcolax) 10 mg MS DAILY PRN PRN Reason: Constipation Stop: 05/08/19 14:11 Diphenhydramine HCl (Benadryl Capsule) 25 mg PO Q6H PRN PRN Reason: Allergic Rhinitis/Insomnia Stop: 05/08/19 14:11 Duloxetine HCl (Cymbalta) 60 mg PO QPM DELPHINE Stop: 05/08/19 20:59 Last Admin: 04/09/19 20:14 Dose: 60 mg Documented by: Famotidine (Pepcid) 20 mg PO Q12H PRN PRN Reason: Dyspepsia Stop: 05/08/19 14:11 Last Admin: 04/09/19 01:31 Dose: 20 mg Documented by: Hydromorphone HCl (Dilaudid) 0.5 mg IV Q3H PRN PRN Reason: MOD pain (scale 4-6) & Pre PT Stop: 04/22/19 14:11 Hydromorphone HCl (Dilaudid) 1 mg IV Q3H PRN PRN Reason: severe pain (scale 7-10) Stop: 04/22/19 14:11 Hydroxyzine HCl (Vistaril) 25 mg PO Q8H PRN PRN Reason: Anxiety Stop: 05/08/19 14:11 Promethazine HCl 12.5 mg/ (Sodium Chloride) 50.5 mls @ 204 mls/hr IV Q6H PRN PRN Reason: Nausea &/or Vomiting Stop: 05/08/19 14:11 Lorazepam (Ativan) 0.5 mg in 1 mls @ 0.5 mls/min IV Q8H PRN PRN Reason: Sedation/Anxiety Stop: 05/08/19 14:11 Influenza Virus Vaccine Quadrival (Flu Vaccine, Do Not Administer) 1 ea N/A PRN PRN PRN Reason: Notification Stop: 05/08/19 14:11 Lisinopril (Zestril) 10 mg PO QPM DELPHINE Stop: 05/08/19 20:59 Lorazepam (Ativan) 0.5 mg PO Q8H PRN PRN Reason: Sedation/Anxiety Stop: 05/08/19 14:11 Magnesium Hydroxide (Milk Of Magnesia) 30 ml PO DAILY PRN PRN Reason: Constipation Stop: 05/08/19 14:11 Metoclopramide HCl (Reglan) 10 mg IV Q6H PRN PRN Reason: Nausea &/or Vomiting Stop: 05/08/19 14:11 Last Admin: 04/10/19 00:38 Dose: 10 mg Documented by: Naloxone HCl (Narcan) 0.1 mg IV Q5M PRN; Protocol PRN Reason: Oversedation/Resp Depression Stop: 05/08/19 14:11 Ondansetron HCl (Zofran) 4 mg IV Q6H PRN PRN Reason: Nausea &/or Vomiting Stop: 05/08/19 14:11 Ondansetron HCl (Zofran Odt) 4 mg PO Q6H PRN PRN Reason: Nausea Stop: 05/08/19 14:11 Oxycodone HCl (Roxicodone Immediate Rel) 5 - 10 mg PO Q4H PRN PRN Reason: Moderate-Severe Pain & Pre PT Stop: 04/22/19 14:11 Last Admin: 04/10/19 00:37 Dose: 10 mg Documented by: Pantoprazole Sodium (Protonix) 40 mg PO QPM DELPHINE Stop: 05/08/19 20:59 Last Admin: 04/09/19 20:12 Dose: 40 mg Documented by: Pneumococcal Polyvalent Vaccine (Pneumococcal Vacc, Do Not Administer) 1 ea N/A PRN PRN PRN Reason: Notification Stop: 05/08/19 14:11 Polyethylene Glycol (Miralax Powder Packet) 17 gm PO Q6 DELPHINE Stop: 05/09/19 05:59 Last Admin: 04/10/19 17:58 Dose: 17 gm Documented by: Pramipexole Dihydrochloride (Mirapex) 1 mg PO HS [facility] Stop: 05/09/19 20:59 Last Admin: 04/09/19 20:13 Dose: 1 mg Documented by: Pramipexole Dihydrochloride (Mirapex) 0.5 mg PO DAILY@1200 [facility] Stop: 05/09/19 11:59 Last Admin: 04/10/19 12:25 Dose: 0.5 mg Documented by: Senna/Docusate Sodium (Senokot S) 2 tab PO [facility] Stop: 05/08/19 20:59 Last Admin: 04/09/19 20:13 Dose: 2 tab Documented by: Sodium Biphosphate/Sodium Phosphate (Fleet Enema) 132 ml MS ONE PRN PRN Reason: Constipation Stop: 05/08/19 14:11 Tramadol HCl (Ultram) 50 - 100 mg PO Q4H PRN PRN Reason: Moderate-Severe Pain & Pre PT Stop: 05/08/19 14:11 Last Admin: 04/10/19 18:02 Dose: 100 mg Documented by:
[2019-04-10] MEDS: DULOXETINE HCL 60 MG CAP PO SCH (21:09)
[2019-04-10] MEDS: DOCUSATE SODIUM/SENNA 50/8.6MG TAB PO SCH (21:12)
[2019-04-10] MEDS: ATORVASTATIN 20 MG TAB PO SCH (21:12)
[2019-04-10] MEDS: PANTOprazole 40 MG TAB PO SCH (21:13)
[2019-04-10] MEDS ORDERED: SODIUM CHLORIDE 0.9% 1000ML 500 ML IV ONE (21:43)
[2019-04-11] MEDS: POLYETHYLENE (MIRALAX) 17 GM PACK PO SCH ×5 (00:04→23:04)
[2019-04-11] MEDS: ONDANSETRON 4 MG OD TAB PO PRN (00:12)
[2019-04-11 06:05] LABS: Hematocrit (blood only) 33.1 % (37-47); Hemoglobin 10.6 g/dL (12.0-16.0); Mean Corpuscular Hemoglobin 30.6 pg (25-34); Mean Corpuscular Volume 95.7 fL (80-100); Platelet Count 144 K/uL (130-400); RDW Coefficient of Variation 14.9 % (11.5-14.5); RDW Standard Deviation 51.8 fL (36.4-46.3); Red Blood Count 3.46 M/uL (4.2-5.4); White Blood Count 8.05 K/uL (4.8-10.8)
[2019-04-11 06:45] LABS: BUN Creatinine Ratio 12.7 (10-20); Calcium 8.8 mg/dl (8.5-10.1); Creatinine Clr Calc Pharmacy 83.7 ml/min; Est GFR (Non-African American) 94.9; Potassium 3.9 mmol/L (3.5-5.1)
--- NOTE | 2019-04-11 07:51 | Orthopedic Progress Note ---
Date of Service April 11, 2019 Assessment & Plan (1) Neurogenic claudication due to lumbar spinal stenosis: At this time we will continue physical therapy. I will await review of her CAT scan. Hopefully discharge home tomorrow. Present on Admission?: Yes Admission and Anticipated Discharge Date Admission Date: April 08, 2019 Anticipated date of discharge: 04/11/19 Subjective Patient's back pain is controlled leg pain markedly improved. She is having flatus but no bowel movement as of yet. Physical Exam Physical Exam: On exam she is good strength testing appears comfortable. Results & Data ([facility]) Vital Signs (Past 12 Hours) Vital Signs Temp Pulse Pulse Resp BP BP Pulse Ox 04/11/19 06:06 36.7 C 95 H 16 106/71 92 04/10/19 23:58 103 H 118/73 04/10/19 22:50 37.1 C 101 H 16 114/71 90 04/10/19 22:33 102 H 110/71 04/10/19 21:14 37.1 C 92 H 18 86/57 L 92
--- NOTE | 2019-04-11 09:17 | CT Scan Report ---
CT OF THE LUMBAR SPINE CLINICAL HISTORY: post op COMPARISON STUDY: Lumbar spine fluoroscopic images April 08, 2019. TECHNIQUE: Helical axial images of the lumbar spine were obtained. Sagittal and coronal reconstruct ions were viewed. Automated exposure control was utilized for the study. A dose lowering technique was utilized adhering to the principles of ALARA. FINDINGS: For purposes of numbering on this exam, the L5-S1 disc space is assigned to axial image 278 of 361. Note is made of mild levoscoliosis of the lumbar spine. Patient is status post L3-L4 and L5- S1 discectomies with interbody spacer placement. The L5-S1 spacer is anteriorly displaced with a port ion of the spacer extending anterior to the disc space. Posterior decompression is noted. Bilateral p edicle screws at the L3, L4, L5 and S1 levels are noted. The hardware is intact. Surgical drain is in place. There are no unexpected radiopaque foreign bodies. Central canal neural foramen are suboptima lly assessed by CT. As expected, there is fluid within the operative bed. Paravertebral soft tissues are unremarkable. IMPRESSION: 1. Status post L3-L4 and L5-S1 discectomies with interbody spacer placement. L5-S1 spacer anteriorly displaced with a portion of the spacer extending anterior to the disc space. 2. Posterior decompression with bilateral pedicle screw fusion from L3 through S1. Hardware intact. N o unexpected radiopaque foreign bodies. 3. Suboptimal evaluation of the central canal and neural foramen given CT technique. ACT 112: Negative or not required by law. Electronically signed by: Gilles Ruvalcaba M.D. 04/11/2019 9:15 AM
--- NOTE | 2019-04-11 11:22 | Hospitalist Progress Note ---
Date of Service April 11, 2019 Assessment & Plan (1) Post-operative state: (2) Neurogenic claudication due to lumbar spinal stenosis: Post op day# 3 S/P L2-S1 decompression and fusion by Dr. Galvez Pain controlled Ambulating -ortho has CT lumbar ordered and pending -pain management per ortho -wound management per ortho -PT/OT as appropriate -DVT prophylaxis per ortho -incentive spirometry -Hgb: stable at 10.6 (3) Hypertension: postoperative hypotension. Today BP: 106/71. Denies dizziness today. -Continue to hold lisinopril (4) GERD (gastroesophageal reflux disease): -Continue PPI (5) Depression: -continue Cymbalta. -Pt was seen by psychiatric liaison nurse and felt to be low risk. Good outpatient support in place per PLN reports. -Pt denies suidical ideations today (6) DVT prophylaxis: SCDs, recommend DVT prophlaxis post-operatively when OK with surgery Full Dispo-per Ortho Pt was seen and care coordinated with Dr Buenrostro. See addendum Admission and Anticipated Discharge Date Admission Date: April 08, 2019 Anticipated date of discharge: 04/11/19 Supervising Physician Co-Signing Physician Notes I have seen and examined the patient and have discussed the case with the provider above. I agree with the assessment and plan as stated. 63 yo F POD 3 s/p back surgery. Improved overall and ambulating with walker. BP improved post-operatively. Cont to hold lisinopril as above. Physical exam consistent with that above. Cont current care plan per Orthopedics. Porter, DO Subjective doing well today pain well managed somewhat distressed over awaiting CT findings expresses this process of having surgery was more than she anticipated. Review of Systems Review of Systems: All systems reviewed & are unremarkable except as noted in Subjective Physical Exam Physical Exam: CONSTITUTIONAL: WNWD, vitals as above, generally well- appearing EYES: normal conjunctivae, no scleral icterus ENT: external ear and nose normal,MMM RESPIRATORY: clear to auscultation bilaterally, no crackles, rales or wheezes, normal respiratory effort CARDIOVASCULAR: regular rate and rhythm, S1 and 2 heard without murmurs, gallops or rubs, no JVD, no peripheral edema GASTROINTESTINAL: normal bowel sounds, soft, nontender, nondistended MUSCULOSKELETAL: strength 5/5 throughout, head is normocephalic and atraumatic, lower back surgical site covered with dressing, CIRA drain in place with bloody fluid. SKIN: warm and dry NEUROLOGIC: CN 2-12 grossly intact, no sensory deficit, normal cognition, normal speech, no gross focal deficits PSYCHIATRIC: alert cooperative and oriented to person, place and time. Results & Data ([facility]) Vital Signs (Past 12 Hours) Vital Signs Temp Pulse Pulse Resp BP Pulse Ox 04/11/19 06:06 36.7 C 95 H 16 106/71 92 04/10/19 23:58 103 H 118/73
[2019-04-11] MEDS: PRAMIPEXOLE DIHYDROCHLO 0.5 MG TAB PO SCH ×2 (11:40→21:36)
[2019-04-11] MEDS: OXYCODONE HCL IR 5 MG TAB (IMMEDIATE RELEASE) PO PRN (18:23)
[2019-04-11] MEDS: DOCUSATE SODIUM/SENNA 50/8.6MG TAB PO SCH (21:36)
[2019-04-11] MEDS: DULOXETINE HCL 60 MG CAP PO SCH (21:36)
[2019-04-11] MEDS: PANTOprazole 40 MG TAB PO SCH (21:36)
[2019-04-11] MEDS: ATORVASTATIN 20 MG TAB PO SCH (21:36)
[2019-04-12] MEDS: ONDANSETRON 4 MG OD TAB PO PRN (00:24)
[2019-04-12] MEDS: OXYCODONE HCL IR 5 MG TAB (IMMEDIATE RELEASE) PO PRN ×2 (06:21→12:20)
[2019-04-12] MEDS: PRAMIPEXOLE DIHYDROCHLO 0.5 MG TAB PO SCH (12:20)
--- NOTE | 2019-04-12 13:34 | Discharge Summary ---
Date of Service April 12, 2019 Admission HPI Per Admitting Provider This is a 63-year-old female that presents with chronic persistent back and leg pain after failing course of nonoperative care is here for surgical invention. Principal Diagnosis Lumbar spinal stenosis with neurogenic claudication Discharge Data Allergies Allergy/AdvReac Type Severity Reaction Status Date / Time nickel Allergy Unknown RASH Verified 04/08/19 07:53 Penicillins Allergy Unknown HIVES Verified 04/08/19 07:53 Consultations 04/08/19 14:12 Consult Case Management - Discharge Planning Routine Consult Hospitalist Routine 04/08/19 14:44 Consult Behavioral Health Liaison Routine Procedures Performed Operation Date: 04/08/19 09:05 Actual Procedures p L2-S1 Decompression and Fusion, application of osteamp, application of infuse, Spinal Cord Monitoring(Not Applicable) - Ziyad Galvez DO Ordered Studies 04/08/19 09:05 FL fluoroscopy <1hr Routine FL lumbar spine 2-3V Routine 04/11/19 08:30 CT lumbar spine wo con Routine Hospital Course (1) Neurogenic claudication due to lumbar spinal stenosis: Patient went lumbar decompression fusion tolerated as well as taken the orthopedic floor postoperative. Postop day 1 she was somewhat hypotensive which shows for very modest activity that day however the following day she began to improve hematocrit was stable we continue with physical therapy throughout the week. CIRA drain decreasing appropriately. Her function becoming markedly improved Final day of service of the hospital stay she had excellent strength testing was quite comfortable CIRA drain decreased probably. Subsequent discharge home. Discharge orders and instructions from the chart for further view. Total Time Total Time Spent Total Time Spent (In Minutes): 20 minutes Discharge Plan Discharge Items Patient Disposition: Home - Self-Care Reason For Visit: LUMBAR SPINAL STENOSIS WO NEUROGENIC CLAUDICATION Discharge Diagnosis: Lumbar spinal stenosis with neurogenic claudication Activity: As commented below Non-emergency contact: Primary Care Provider Call non-emergency contact if: you have any medication questions Follow-up/Referrals: Lulú Nowak PA-C [Primary Care Provider] - 04/15/19 3:00 pm (Please arrive for your appointment by 2:45p.m. If you need to reschedule this appointment, please call [phone].) Diet: Regular Addtl Attending Provider Instructions: ACTIVITY RECOMMENDATIONS: SELF CARE INSTRUCTIONS AFTER THORACIC/LUMBAR FUSIONS 1. You may walk to your tolerance. It is good exercise for your legs and back. Expect some back and intermittent leg aches and pains. 2. You may perform "counter-top" level activities (make a sandwich, evaristo with a project, etc.). 3. No bending or lifting of more than 10 pounds or back twisting of any nature (roll like a log when turning in bed). 4. You may ride in a car for 20-30 minutes at a time. No driving until after your first visit with your doctor. 5. Frequent changes of position and restricting sitting to 30 minutes at a time will help limit the amount of back spasms and stiffness you may experience. 6. You may discontinue the use of ambulatory aids (cane, crutches, etc.) once your strength and confidence allow. 7. You may manager supply chain the shower and let water strike your incision when you arrive home at least once daily. Do not take a tub bath, sit in a hot tub or go into a swimming pool until after your first recheck in the office. SPECIAL CARE INSTRUCTIONS: VERY IMPORTANT TO READ AND REVIEW A. Your surgical incision has been closed with a cosmetic suture under the skin that will dissolve in about 6 weeks. In 14 days, you can use a pair of clean scissors and cut the suture that is left outside of the skin at the ends of your incision. 1. The small skin tapes can be removed 7 days after surgery if they have not fallen off by that point. 2. You may keep the wound open to air as much as possible to promote healing after post-op day number 5 unless told otherwise by your doctor. 3. If you think the wound looks like it is becoming infected (redness or worsening drainage) and/or you are experiencing fever, chill or worsening back pain and muscle spasms, contact the office so that we may evaluate you as soon as possible. B. Complications are uncommon, but please contact us if you have any signs or symptoms of: 1. wound infection (fever higher than 102.5 degrees F, redness, separation of wound, drainage, or increasing pain from the incision) 2. blood clots in legs (pain, swelling, redness and warmth in legs) 3. urinary tract infection (fever higher than 102.5 degrees F, burning upon urination or increased frequency of urination) 4. nerve problems (inability to walk on your toes or heels, numbness, loss of bowel or bladder control) 5. any other symptoms that concern you C. Please call the office at if you have any concerns or questions about your operation or recovery. D. No smoking! Smoking drastically decreases the chance of a solid fusion. E. Do not take any anti-inflammatory medications (Indocin, Advil, Motrin, Aspirin, Naprosyn, etc.) as these may inhibit the chance of a solid fusion. Tylenol is okay to take for pain. MANAGING PAIN AFTER SPINAL SURGERY 1. Narcotic medication is intended for short-term use and will be provided for surgical pain. Surgical pain usually lasts for a period of 4-6 weeks. Narcotic medication includes Percocet, Vicodin, Darvocet, Tylenol #3 or Lortab. 2. Longer-term pain is more appropriately treated with non-narcotic medication such as Tylenol ES. 3. Muscle spasm is not appropriately treated with narcotics. Muscle relaxers such as Soma, Flexeril or Skelaxin can be used along with Tylenol ES. 4. Remember that we all live with some "aches and pains". This is not unusual or uncommon after an injury or as we get older. a. Back pain is expected and may include muscle spasms for 4 to 6 weeks after surgery. The pain should gradually improve. If the pain worsens for no apparent reason, please contact the office. b. Intermittent leg pain may also be experienced and should not be concerned about unless it worsens for no apparent reason. If so, please contact the office. 5. We will provide appropriate medication within the normal guidelines of their prescribed use. We will also be very cautious and aware of potential abuse and extended duration of patients' medication needs. a. Pain medications are for your comfort and to assist with sleep and rest so that the tissue can heal. They are not provided in order to return to normal activity and should not be used through the day. To do so or worsening pain at night can result from ongoing tissue damage and develo pment of tolerance to the prescribed medicine. 6. Please allow 2-3 days to process refills. Prescriptions will not be mailed but must be picked up at the office. FOLLOW UP VISIT: Keep your scheduled follow-up appointment. Any questions, please call the office at . Pending Studies at Discharge: No Stand-Alone Forms: My [facility], Opioid Pain Management, Smoking Cessation Medications and DC Order Prescriptions: New oxycodone 5 mg tablet 5 mg PO Q6H PRN (Reason: pain, severe) Qty: 30 RF: 0 tramadol 50 mg tablet 50 mg PO Q6H PRN (Reason: pain, moderate) Qty: 30 RF: 0 Continued atorvastatin 20 mg Tablet 20 mg PO PM RF: 0 meloxicam 15 mg Tablet 15 mg PO QPM RF: 0 omeprazole 40 mg Capsule,Delayed Release(Dr/Ec) 40 mg PO QPM RF: 0 pramipexole [Mirapex] 0.5 mg Tablet 0.5 mg PO DAILY RF: 0 lisinopril 10 mg Tablet 10 mg PO QPM RF: 0 duloxetine 60 mg Capsule,Delayed Release(Dr/Ec) 60 mg PO QPM RF: 0 acetaminophen 500 mg Tablet 1,500 mg PO Q6H PRN (Reason: Pain) RF: 0 Discharge Orders: Discharge Order (Routine); Ordered 04/12/19 Ordered By: Ziyad Freed/Other Patient Handouts: Surgery Prevent DVT After, ED Stockings Chidi Admission Data Admit Date/Time: 04/08/19 14:03 Attending Provider: Ziyad Galvez Admit Provider: Ziyad Galvez Primary Care Provider: Lulú Nowak Other Providers: Yari Buenrostro. Other Interventions: Discharge Summary Assessment (RN) Last Done: 04/12/19 11:48 DC Date/Time DO NOT enter until pt leaves facility: 04/12/19 13:00
== END 2019-04-12 13:00 | disposition home or self-care (01) | DRG 454 ==
LOC: ASU 07:16 → 3E 14:03

== ENCOUNTER 2024-01-01 08:49 | Inpatient (IN) ==
--- NOTE | 2023-12-19 09:13 | PAT Medication Instructions ---
Medication Instructions Date of Service December 19, 2023 Home Medications acetaminophen 500 mg tablet 1,500 mg PO Q6H PRN atorvastatin 20 mg tablet 20 mg PO HS duloxetine 60 mg capsule,delayed release 60 mg PO HS lisinopril 10 mg tablet 10 mg PO QPM meloxicam 15 mg tablet 15 mg PO QPM ropinirole 1 mg tablet 2 mg PO HS Vitamin K With D3 1 tab PO BID multivitamin 1 tab PO DAILY pramipexole 1.5 mg tablet 1.5 mg PO QDL Continue as directed pramipexole 1.5 mg tablet 1.5 mg PO QDL ASK your surgeon for instructions meloxicam 15 mg tablet 15 mg PO QPM STOP taking 2 weeks before surgery (or as soon as possible if surgery is within 2 weeks) Vitamin K With D3 1 tab PO BID DO NOT take the morning of surgery multivitamin 1 tab PO DAILY Take morning of surgery With a small sip of water, OTHERWISE NOTHING TO EAT OR DRINK AFTER MIDNIGHT: acetaminophen 500 mg tablet 1,500 mg PO Q6H PRN(if needed) Take evening before surgery acetaminophen 500 mg tablet 1,500 mg PO Q6H PRN(if needed) atorvastatin 20 mg tablet 20 mg PO HS duloxetine 60 mg capsule,delayed release 60 mg PO HS lisinopril 10 mg tablet 10 mg PO QPM ropinirole 1 mg tablet 2 mg PO HS Other Notes If you have any questions please call us at [phone] or [phone] or [phone] or [phone]
--- NOTE | 2023-12-21 10:11 | Anesthesiology Consultation ---
Date of Service December 21, 2023 Assessment & Plan (1) Encounter for pre-operative examination: Chart Review Chart Review: Acceptable Risk for Surgery (pending PCP clearance ) and Patient seen in Pre Admission Testing - Awaiting PCP clearance 12/28/23 (Lulú GARDINER) - please fax preop testing to PCP for review Per PAT appt on 12/21/23, no recent illness/disease exposures, illness related symptoms, or recent illness/disease positive tests. Will leave to surgeon's discretion if preop Covid testing needed Right Hip Endoscopic Bursectomy 06/07/22= Done under [facility] with Grade 1 view with MAC #3. ETT #7. Atraumatic DL x 1 Teaching & Discussion Pre-Anesthesia Teaching/Discussion Notes: Instructed NPO after midnight before surgery,except medications with 15 cc of water. Medication instructions provided according to the [facility] guidelines. History Surgery Operation Date: 01/01/24 10:05 Proposed Procedures p T11- L2 Decompression and Fusion, Spinal Cord Monitoring - Ziyad Galvez DO s Spinal Cord Stimulator Removal - Ziyad Galvez DO Height/Weight Height: 5 ft Weight: 78.7 kg Allergies Allergy/AdvReac Type Severity Reaction Status Date / Time nickel Allergy Intermediate Rash Verified 12/18/23 12:31 Penicillins Allergy Intermediate Hives Verified 12/18/23 12:31 Medications Home Medications Medication Instructions Recorded Confirmed Last Taken acetaminophen 500 mg tablet 1,500 mg PO Q6H PRN Pain 03/13/19 12/18/23 02/05/20 04:00 atorvastatin 20 mg tablet 20 mg PO HS 03/13/19 12/18/23 06/06/22 duloxetine 60 mg capsule,delayed 60 mg PO HS 03/13/19 12/18/23 06/06/22 release lisinopril 10 mg tablet 10 mg PO QPM 03/13/19 12/18/23 06/06/22 meloxicam 15 mg tablet 15 mg PO QPM 03/13/19 12/18/23 06/06/22 ropinirole 1 mg tablet 2 mg PO HS 06/07/22 12/18/23 06/06/22 Vitamin K With D3 1 tab PO BID 12/18/23 12/18/23 Unknown multivitamin 1 tab PO DAILY 12/18/23 12/18/23 Unknown pramipexole 1.5 mg tablet 1.5 mg PO QDL 12/18/23 12/18/23 Unknown Past Medical History Medical History Anxiety and depression DJD (degenerative joint disease) GERD (gastroesophageal reflux disease) well controlled and stable Hiatal hernia History of COVID-24 Jan 2022 > not hospitalized History of stomach ulcers x2- no recent issues HTN (hypertension) Hyperlipidemia Obesity Osteoarthritis PONV (postoperative nausea and vomiting) Postoperative hypoxia "has happened more than one time" as per patient Restless leg syndrome Spinal cord stimulator status instructed to bring remote Spinal stenosis Spondylolisthesis Exercise / Class Metabolic Activity II 4-5 Yardwork/Stairs/Walk up hill (one flight of stairs - no chest pain or SOB) Past Family History Family History Mother Breast cancer Past Surgical History Surgical History (Updated 12/21/23 @ 10:59 by Anusha Hannah PA-C) History of arthroscopy left ankle History of bilateral tubal ligation History of breast biopsy right > benign History of bunionectomy of both great toes History of carpal tunnel surgery of right wrist History of esophagogastroduodenoscopy (EGD) History of hip surgery Right Hip Endoscopic Bursectomy 06/07/22= Done under [place] with Grade 1 view with MAC #3. ETT #7. Atraumatic DL x 1 History of lumbar laminectomy History of lumbar spinal fusion L2-S1 decompression/fusion: 04/08/2019: Grade view 3, MAC #3.0, ETT 7.0 at [facility] History of partial hysterectomy History of tooth extraction History of total right knee replacement (TKR) History of trigger finger with release right hand x2 Past Anesthesia History No Hx of Anesthesia Complications (with exception to PONV, post operative hypoxia for some surgeries, hx of post operative hypotension (see below)) and No Family Hx of Anesthesia Complications Patient reports post-op hypotension after lumbar fusion 04/08/19 at [facility]. Per anesthesia post-progress note: "no major complications apparent and Pt Satisfied with anesthetic care." BP range appear ~90's/60's with as low as 63/37 at 18:56-- medically managed. Per discharge summary, "Postop day 1 she was somewhat hypotensive which shows for very modest activity that day however the following day she began to improve hematocrit was stable we continue with physical therapy throughout the week." (Patient denies issues with subsequent surgeries) History of PONV No Hx of Motion Sickness and History of PONV (improved with pre operative anti nausea/vomiting ) Social History Smoking Status: Never smoker Do You Dip or Chew Tobacco: No Hx Alcohol Use: No Hx Substance Use: No substance use type: does not use Review of Systems - Hx of snoring (only when on back)- hx of sleep study many years ago- no MELVIN at that time Patient denies chest pain, shortness of breath, dyspnea on exertion, cough, wheezing, palpitations. No hx of seizures, stroke, VT. No hx of blood clots or blood transfusions Physical Exam Vital Signs VITALS BP 117/78 P 76 TEMP 98.5 SP02 95% RESP 16 Constitutional no acute distress ENMT Mouth: no TMJ clicking Thyromental Distance: > or= 3.5 Finger Breadths (3.5) Mallampati Class: I Top front permanent bridge Neck + limited neck extension Respiratory normal respiratory effort; no respiratory distress Auscultation: lungs clear to auscultation bilaterally; no wheezes Cardiovascular Rate/Rhythm: regular rate and regular rhythm Heart Sounds: no murmur Vessels: no carotid bruit Musculoskeletal Spine: + pain with cervical ROM (mild/stiffness) Extremities: extremities normal to inspection Psychiatric Orientation: alert Lab Results Anesthesia Preop Results Results Anesthesia Widget: WBC 6.01 K/ul (4.8-10.8) 12/21/23 Hgb 14.3 g/dl (12.0-16.0) 12/21/23 Hct 42.8 % (37.0-47.0) 12/21/23 Plt 184 K/uL (130-400) 12/21/23 Na 140 mmol/L (136-145) 12/21/23 K 4.3 mmol/L (3.5-5.1) 12/21/23 Cl 107 mmol/L (98-107) 12/21/23 CO2 28 mmol/L (21-32) 12/21/23 BUN 27 mg/dl (6-23) H 12/21/23 Creat 0.62 mg/dl (0.6-1.2) 12/21/23 Glucose Level 84 mg/dl (70-99(Fasting)) 12/21/23 PT 10.2 Seconds (9.0-12.0) 12/21/23 PTT 26 Seconds (21-31) 12/21/23 INR 0.9 (0.9-1.1) 12/21/23 Urine Color Dark Yellow 12/21/23 Urine Appearance Clear (Clear) 12/21/23 Urine pH 5.5 (4.5-7.5) 12/21/23 Urine Specific [place] 1.030 (1.000-1.030) 12/21/23 Urine Protein Negative (Negative) 12/21/23 Urine Glucose (UA) Negative (Negative) 12/21/23 Urine Ketones Trace (Negative) H 12/21/23 Urine Blood Negative (Negative) 12/21/23 Urine Nitrite Negative (Negative) 12/21/23 Urine Bilirubin Negative (Negative) 12/21/23 Urine Urobilinogen Negative (Negative) 12/21/23 Urine Leukocyte Esterase Trace (Negative) H 12/21/23 Urine WBC (Auto) 0-5 /hpf (0-5) 12/21/23 Urine RBC (Auto) 0-2 /hpf (0-2) 12/21/23 Urine Hyaline Casts (Auto) 0-2 /lpf (0-2) 12/21/23 Urine Epithelial Cells (Auto) 0-2 /hpf (0-2) 12/21/23 Urine Bacteria (Auto) None Seen (None Seen) 12/21/23 Blood Type O Positive 12/21/23 Antibody Screen NEGATIVE 12/21/23 Testing Electrocardiogram Date: 12/21/23 Findings: + NSR @ (75bpm) Low voltage QRS Chest X-Ray Date: 12/21/23 Findings: + NAD FINDINGS: Lungs are clear with no pulmonary infiltrate or pleural effusion. Cardiomediastinal silhouette is within normal limits. Degenerative changes are present in the spine. Spinal stimulator leads are seen posterior to the mid thoracic vertebrae.
[2024-01-01] MEDS: LR 60ML/HR IV SCH (09:56)
--- OUTSIDE RECORDS SUMMARY | 2024-01-01 10:08 | External Medical Summary | Summary of Care ---
Author Name Unknown Organization [facility] Address [address] [facility] [place] [address] Phone [phone] Care Team Providers Care Electrician Radio Name Role Phone Lulú Nowak PA-C Primary Care Provider Encounter Details Date Type Department Care Team (Late st Contact Info) Description 12/14/2023 Population Health External Data Unspecified Department Allergies Active Allergy Reactions Criticality Noted Date Comments Nickel Hives 12/28/2015 Penicillins Hives 04/27/2001 documented as of this encounter (statuses as of 12/21/2023) Medications Acetaminophen 500 MG Oral Tablet Take 1 Tablet by mouth every 6 hours as needed. Active Meloxicam 15 MG Oral Tablet (Mobic)Indications:Lumb ar degenerative disc disease TAKE ONE TABLET BY MOUTH IN THE MORNING 90 Tablet 3 4 9:23 AM EDT 12/02/19 23 Active rOPINIRole HCl 1 MG Oral Tablet (Requip)Indications:Res tless legs syndrome (RLS) TAKE ONE TABLET BY MOUTH ONE TO THREE HOURS BEFORE BEDTIME WITH FOOD. MAY TAKE AN ADDITIONAL TABLET IF FIRST TABLET FAILS TO WORK. 100 Tablet 3 4 12:45 PM EDT 12/02/19 23 Active Cyclobenzaprine HCl 5 MG Oral Tablet (Flexeril) Take 1 Tablet by mouth daily as needed for Muscle spasms. Active Atorvastatin Calcium 20 MG Oral Tablet (Lipitor)Indications:Pu re hypercholesterolemia TAKE ONE TABLET BY MOUTH IN THE MORNING 100 Tablet 3 4 8:56 AM EDT 08/22/19 24 Active Topiramate 25 MG Oral Tablet (topAMAX)Indications:Cl ass 1 obesity due to excess calories with serious comorbidity in adult, unspecified BMI,Abnormal weight gain Take 1 Tablet by mouth in the morning and 1 Tablet before bedtime. 60 Tablet 5 10/27/19 24 Active Lisinopril 10 MG Oral Tablet (Prinivil)Indications:E ssential hypertension with goal blood pressure less than 140/90 TAKE ONE TABLET BY MOUTH IN THE MORNING 90 Tablet 3 4 3:07 PM EDT 11/15/19 24 Active Pramipexole Dihydrochloride 1.5 MG Oral TabletIndications:Restl ess legs syndrome (RLS) TAKE ONE TABLET BY MOUTH AT BEDTIME 90 Tablet 3 4 3:07 PM EDT 11/15/19 24 Active DULoxetine HCl 60 MG Oral Capsule Delayed Release Particles (Cymbalta)Indications:G eneralized anxiety disorder TAKE ONE CAPSULE BY MOUTH IN THE MORNING 90 Capsule 3 4 3:07 PM EDT 11/15/19 24 Active hydrOXYzine HCl 25 MG Oral TabletIndications:Gener alized anxiety disorder TAKE ONE TABLET BY MOUTH THREE TIMES DAILY NEEDED FOR ANXIETY 270 Tablet 1 12/04/19 24 Active documented as of this encounter (statuses as of 12/21/2023) Active Problems Problem Noted Date Diagnosed Date Pure hypercholesterolemia 10/18/2021 Neurogenic claudication due to lumbar spinal royer nosis 04/15/2019 Lumbar radiculopathy 03/25/2019 Lumbar spine pain 03/25/2019 Lumbar degenerative disc disease 11/27/2017 Essential hypertension with goal blood pressure less than 140/90 02/18/2016 GERD (gastroesophageal reflux disease) 5 Generalized osteoarthritis 07/09/2014 Sleep apnea Restless legs syndrome (RLS) Generalized anxiety disorder Persistent disorder of initiating or maintaining sleep documented as of this encounter (statuses as of 12/21/2023) Resolved Problems Problem Noted Date Diagnosed Date Resolved Date Gastroesophageal reflux disease 12/01/2022 12/01/2022 ADVANCE DIRECTIVE INFORMATION 03/14/2005 12/11/2023 Overview (03/14/2005): No, Advance Directive brochure offered , patient declined. Insomnia 01/02/2015 Overview (11/07/2016): ICD-10 update of inactive term Urinary frequency 11/27/2017 Allergic rhinitis 11/27/2017 documented as of this encounter (statuses as of 12/21/2023) Immunizations Name Administration Dates Next Due COVID-19 mRNA, LNP-s, No Pre serve, 2-Dose Series (Pfizer) 04/14/2020,03/17/2020 COVID-19, MRNA-LNP, PF, 30 M CG/0.3 mL, 12 YRS AND ABOVE, IM (PFIZER-Comirnaty) 02/17/2023 COVID-19, MRNA-LNP, PF, 50 M CG/0.5 mL, 12 YRS AND ABOVE, IM (MODERNA-Spikevax) 05/07/2020,03/09/2020 Covid-19, Mrna, Lnp-s, Pf, B ivalent, 30 Mcg, IM, 12 yrs and above (Pfizer) 10/27/2021 Pneumococcal Conjugate Vacci ne, 20-valent ([id number]) 12/01/2022 Seasonal Influenza Vac., MDV , IM, 0.5 mL (Fluzone) 11/20/2012,11/30/2011 Seasonal Influenza, PF, 6 M & above, IM , (FluLaval or Fluzone) 10/18/2021,01/18/2021,11/11/2019,2018,11/27/2017 Seasonal Influenza, Quadriva lent Hd (Fluzone Hd) 12/01/2022 Seasonal Influenza, Quadriva lent, No Preserve, IM 12/15/2015 TD, Preservative Free 10/18/2021 TDAP, Age 7 and older, IM (Adacel) 08/05/2011, Zoster Vaccine Recombinant (Shingrix) 09/14/2020 ,11/11/2019 documented as of this encounter Social History Tobacco Use Types Packs/Day Years Used Date Smoking Tobacco: Never Smokeless Tobacco: Never Alcohol Use Standard Drinks/Week Comments No 0 (1 standard drink = 0.6 oz pur e alcohol) PHQ-2 Answer Date Recorded PHQ Adult Total Score 1 12/01/2022 Hunger Vital Sign Answer Date Recorded Within the past 12 months, y ou worried that your food would run out before you got the money to buy more. Never true 06/13/19 24 Within the past 12 months, t he food you bought just didn't last and you didn't have money to get more. Never true 06/13/2023 Childcare Answer Date Recorded Do you feel overwhelmed with taking care of a child, family member or friend? No 06/13/2023 Does your family need help f inding childcare? (Household - for ages 0-17 years) Not on file 06/13/2023 Clothing Answer Date Recorded Have you been unable to get clothing when it was really needed? No 06/13/2023 Is your family able to get c lothes or diapers when needed? (Household - for ages 0-17 years) Not on file 06/13/2023 Personal Safety Answer Date Recorded Do you feel unsafe or have concerns for your saf ety? No 06/13/2023 Do you have concerns for you r family's safety? (Household - for ages 0-17 years) Not on file 06/13/2023 Utilities Answer Date Recorded Do you have trouble paying y our heating, water, or electric bill? No 06/13/2023 Is your family able to pay t he heat, water, or electric bill? (Household - for ages 0-17 years) Not on file 06/13/2023 Does your family have access to good internet? (Household - for ages 0-17 years) Not on file 06/13/2023 Employment Status Answer Date Recorded Are you unemployed or without regular income? No 06/13/2023 Does the household have a re gular source of income? (Household - for ages 0-17 years) Not on file 06/13/2023 Social Connections Answer Date Recorded How often do you feel lonely or isolated from th ose around you? Never 06/13/2023 Financial Resource Strain Answer Date R ecorded Do you have any trouble payi ng for your medications, or do you think you might in the future? No 06/13/2023 Does your family have troubl e paying for medicine? (Household - for ages 0-17 years) Not on file 06/13/2023 Transportation Needs Answer Date Record ed READ ONLY Do you have troubl e getting a ride to medical visits or work? Never True 06/13/2023 Does your family have a hard time getting a ride to doctors visits? (Household - for ages 0-17 years) Not on file 06/13/2023 Has lack of transportation k ept you from medical appointments, meetings, work, or from getting things needed for daily living? Check all that apply. (Adult - for ages 18 years and over) Not on file 06/13/2023 Do you (or your family) have trouble finding or paying for a ride (transportation)? (Household - for ages 0-17 years) Not on file 06/13/2023 Housing Stability Answer Date Recorded Do you currently live in a s helter or have no steady place to sleep at night? No 06/13/2023 READ ONLY Do you think you a re at risk of becoming homeless? No 06/13/2023 Does your family worry about paying for your home or becoming homeless? (Household - for ages 0-17 years) Not on file 0 06/13/2023 Are you homeless or worried that you might be in the future? (Adult - for ages 18 years and over) Not on file Are you (or your family) homa eless or worried that you might be in the future? (Household - for ages 0-17 years) Not on file Food Insecurity Answer Date Recorded Do you need food for this week? No 06/13/2023 Are you able to get enough f ood for your family? (Household - for ages 0-17 years) Not on file 06/13/2023 Does your family need food t his week? (Household - for ages 0-17 years) Not on file 06/13/2023 Do you always have enough fo od for your family? 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 Not on file Not on file documented as of this encounter Plan of Treatment Upcoming Encounters Date Type Department Care Team (Late st Contact Info) Description 12/28/2023 11:20 AM EST Office Visit Family [facility] [place] [address] [place] [id number] Ayo Elizabeth CRNP [address] [place] [id number] 01/23/2024 11:00 AM EST Appointment Radiology, [facility] [address] [facility] [place] [id number] Health Maintenance Due Date Last Done Comments Albumin/Creatinine Ratio 11/04/1975 Cologuard 2002 Colonoscopy 2002 Colorectal Cancer Screening 2002 Fecal Occult Blood Test 2002 Sigmoidoscopy 2002 DXA Scan 2022 COVID-19 Vaccine ( season) 2023 02/17/2023, 10/27/2021, 05/07/2020, Additional history exists Influenza Vaccine (FLU shot) (#1) 2023 12/01/2022, 10/18/2021, 01/18/2021, Additional history exists Mammogram 10/12/2023 10/11/2022, 08/0 08/2022, 01/04/2021, Additional history exists Adult Wellness Visit 11/04/2023 Depression Screening 12/02/2023 12/01/2022 GFR 05/18/2024 05/19/2023, 10/08, 04/28/2022, Additional history exists Diabetes Screening 05/18/2026 05/19/2023, 0 11/01/2022, 04/28/2022, Additional history exists Lipid Panel 05/18/2028 05/19/2023, 04/07, 04/20/2021, Additional history exists DTap/Tdap Vaccines (4 - Td or Tdap) 10/19/2031 10/18/2021, 08/05/2011, 06/17/2008 Zoster Vaccines Completed 09/14/2020, 11/11/2019 Pneumococcal Vaccine: 65+ Years Completed 12/01/2022 HPV (Gardasil) Vaccine Aged Out No lo nger eligible based on patient's age to complete this topic Hepatitis B Vaccine Aged Out No longe r eligible based on patient's age to complete this topic Hepatitis C Screening Discontinued MENINGOCOCCAL (MENACTRA/MENVEO) Aged Out No longer eligible based on patient's age to complete this topic documented as of this encounter Medical Devices Not on filedocumented as of this encounter Care Teams Electrician Radio Relationship Specialty Start Date End Date Lulú Nowak PA-C [address] [place] [phone] PCP - General Physician Block Layer 04/06/18 documented as of this encounter
--- OUTSIDE RECORDS SUMMARY | 2024-01-01 10:08 | External Medical Summary | Summary of Care ---
Author Name Unknown Organization [facility] Address [address] [facility] [place] [address] Phone [phone] Care Team Providers Care Enrollment Clerk Name Role Phone Lulú Nowak PA-C Primary Care Provider Reason for Visit * Reason Comments pre-op exam Pt is here for pre-o p exam, surgery is on 12/[address] Galvez, no concerns Encounter Details Date Type Department Care Team (Late st Contact Info) Description 12/28/2023 11:20 AM EST Office Visit [facility] [address] [place] [phone] yAo Elizabeth CRNP [address] [place] [address] Physical exam, routine* Allergies Active Allergy Reactions Criticality Noted Date Comments Nickel Hives 12/28/2015 Penicillins Hives 04/27/2001 documented as of this encounter (statuses as of 12/28/2023) Medications Acetaminophen 500 MG Oral Tablet Take 1 Tablet by mouth every 6 hours as needed. Active Meloxicam 15 MG Oral Tablet (Mobic)Indications:Lumb ar degenerative disc disease TAKE ONE TABLET BY MOUTH IN THE MORNING 90 Tablet 3 4 9:23 AM EDT 023 Active rOPINIRole HCl 1 MG Oral Tablet (Requip)Indications:Res tless legs syndrome (RLS) TAKE ONE TABLET BY MOUTH ONE TO THREE HOURS BEFORE BEDTIME WITH FOOD. MAY TAKE AN ADDITIONAL TABLET IF FIRST TABLET FAILS TO WORK. 100 Tablet 3 4 12:45 PM EDT 023 Active Cyclobenzaprine HCl 5 MG Oral Tablet (Flexeril) Take 1 Tablet by mouth daily as needed for Muscle spasms. Active Atorvastatin Calcium 20 MG Oral Tablet (Lipitor)Indications:Pu re hypercholesterolemia TAKE ONE TABLET BY MOUTH IN THE MORNING 100 Tablet 3 4 8:56 AM EDT 024 Active Topiramate 25 MG Oral Tablet (topAMAX)Indications:Cl ass 1 obesity due to excess calories with serious comorbidity in adult, unspecified BMI,Abnormal weight gain Take 1 Tablet by mouth in the morning and 1 Tablet before bedtime. 60 Tablet 5 Active Additional Information Patient not taking.Reported on 12/28/2023 Lisinopril 10 MG Oral Tablet (Prinivil)Indications:E ssential hypertension with goal blood pressure less than 140/90 TAKE ONE TABLET BY MOUTH IN THE MORNING 90 Tablet 3 4 3:07 PM EDT 024 Active Pramipexole Dihydrochloride 1.5 MG Oral TabletIndications:Restl ess legs syndrome (RLS) TAKE ONE TABLET BY MOUTH AT BEDTIME 90 Tablet 3 4 3:07 PM EDT 024 Active DULoxetine HCl 60 MG Oral Capsule Delayed Release Particles (Cymbalta)Indications:G eneralized anxiety disorder TAKE ONE CAPSULE BY MOUTH IN THE MORNING 90 Capsule 3 4 3:07 PM EDT 024 Active hydrOXYzine HCl 25 MG Oral TabletIndications:Gener alized anxiety disorder TAKE ONE TABLET BY MOUTH THREE TIMES DAILY NEEDED FOR ANXIETY 270 Tablet 1 024 Active documented as of this encounter (statuses as of 12/28/2023) Active Problems Problem Noted Date Diagnosed Date [...] as of this encounter (statuses as of 12/28/2023) Resolved Problems Problem Noted Date Diagnosed Date Resolved Date Gastroesophageal reflux disease 12/01/2022 12/01/2022 ADVANCE DIRECTIVE INFORMATION 03/14/2005 12/11/2023 Overview (03/14/2005): No, Advance Directive brochure offered , patient declined. 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 Not on file Not on file documented as of this encounter Last Filed Vital Signs Vital Sign Reading Time Taken Comments Blood Pressure 122/78 12/28/2023 11:11 AM EST Pulse 85 12/28/2023 11:11 AM EST Temperature 35.8 C (96.4 F) 12/28/2023 11:[address] Respiratory Rate 18 12/28/2023 11:11 AM EST Oxygen Saturation 98% 12/28/2023 11:11 AM EST Inhaled Oxygen Concentration - - Weight 79 kg (174 lb 1.6 oz) 12/28/2023 11:11 AM EST Height 152.4 cm (5') 12/28/2023 11:11 AM EST Body Mass Index 34 12/28/2023 11:11 AM EST documented in this encounter Progress Notes * Ayo Elizabeth CRNP - 12/28/2023 11:18 AM EST Images from the original note were not included. Pre-Operative Medical Evaluation Brief Clinical History Ms. Gama is a 68 year old female last seen in [facility] on 06/13/2023 by Maryuri Nowak She has a h/o the following chronic conditions indicated on the problem list: Chronic Conditions None Procedure Information Type of Surgery: T11 - L2 Decompression and fusion, spinal cord stimulator removal. Referring Physician / Surgeon: Dr. Galvez Date of procedure: 01/01/2024 Brief History of Present Illness: Worsening Back pain. Pt has no other specific complaints today. Labs, EKG, and chest x-ray reviewed. No concerns. Review of Systems: Constitutional ROS: No change in weight, No weakness, No fatigue, and No fevers, sweats, or chills Eye ROS: No recent significant change in vision and No eye pain, redness, discharge Ear ROS: No ear pain, No drainage, No tinnitus or vertigo, and No recent change in hearing Nose ROS: No history of frequent colds or sinusitis, No nasal stuffiness, and No significant epistaxis Mouth/Throat ROS: No bleeding gums, No thrush, or No sore throat Neck ROS: No lumps or masses, No swollen glands, and No significant pain in neck Pulmonary ROS: No cough, sputum, or hemoptysis, No wheezing, No rales, No shortness of breath, and No recent change in breathing Cardiovascular ROS: No chest pain, No shortness of breath, No dyspnea on exertion, No orthopnea, Noparoxysmal nocturnal dyspnea, No edema, No palpitations, and No syncope Gastrointestinal ROS: No abdominal pain, No change in bowel habits, No significant heartburn, No significant change in appetite, No nausea, vomiting, diarrhea, or constipation, No hematemesis, No blood in stools or black tarry stools, No abdominal bloating or early satiety, and No dysphagia Musculoskeletal/Extremities ROS: No pain, redness or swelling on the joints Hematologic/Lymphatic ROS: No chills and No swollen nodes Skin/Integumentary ROS: No edema, No rash, and No itching Neurologic ROS: Normal balance, No headaches, No seizures, and No weakness Medical History Problem List: Gastroesophageal reflux disease (12/01/2022) Pure hypercholesterolemia (10/18/2021) Neurogenic claudication due to lumbar spinal stenosis (04/15/2019) Lumbar radiculopathy (03/25/2019) Lumbar spine pain (03/25/2019) Lumbar degenerative disc disease (11/27/2017) Essential hypertension with goal blood pressure less than 140/90 (01/2017) GERD (gastroesophageal reflux disease) (07/09/2014) Generalized osteoarthritis (07/09/2014) ADVANCE DIRECTIVE INFORMATION (03/14/2005) Insomnia Urinary frequency Allergic rhinitis Sleep apnea Restless legs syndrome (RLS) Generalized anxiety disorder Persistent disorder of initiating or maintaining sleep Current Medications hydrOXYzine HCl 25 MG Oral Tablet, 25 mg, Oral, TID(Non-Specified) DULoxetine HCl 60 MG Oral Capsule Delayed Release Particles (Cymbalta), 60 mg, Oral, Daily(AM) Lisinopril 10 MG Oral Tablet (Prinivil), 10 mg, Oral, Daily(AM) Pramipexole Dihydrochloride 1.5 MG Oral Tablet, 1.5 mg, Oral, HS Atorvastatin Calcium 20 MG Oral Tablet (Lipitor), 20 mg, Oral, Daily(AM) Cyclobenzaprine HCl 5 MG Oral Tablet (Flexeril), 5 mg, Oral, Daily PRN Meloxicam 15 MG Oral Tablet (Mobic), 15 mg, Oral, Daily(AM) rOPINIRole HCl 1 MG Oral Tablet (Requip), TAKE ONE TABLET BY MOUTH ONE TO THREE HOURS BEFORE BEDTIME WITH FOOD. MAY TAKE AN ADDITIONAL TABLET IF FIRST TABLET FAILS TO WORK. Topiramate 25 MG Oral Tablet (topAMAX), 25 mg, Oral, BID(AM/PM) (Patient not taking: Reported on 12/28/2023) Acetaminophen 500 MG Oral Tablet, 500 mg, Oral, Q6H PRN (Patient not taking: Reported on 12/28/2023) Allergies: Nickel and Penicillins Past Medical History: has a past medical history of Adjustment disorder, Allergic rhinitis, Depressive disorder, not elsewhere classified, Generalized anxiety disorder, History of chicken pox (as child), History of fracture of ankle (1999), Hypertension, goal below 140/90, Insomnia, unspecified, Persistent disorder of initiating or maintaining sleep, Personal history of peptic ulcer disease, Restless legs syndrome (RLS), Unspecified sleep apnea, and Urinary frequency. Past Surgical History: has a past surgical history that includes partial hysterectomy (1999); information; Bunion Corrected with Double Osteotomy; ligate/cut oviduct(s); carpal tunnel surgery (Right, 03/2013); knee arthroscopy/surgery (Right, 07/2013); total knee replacement edu. (Right, 01/15/2016); Inject Dx/Ther Substa nce Interlaminar Lumbar/Sacral W Image Guide (07/25/2016); Inject Dx/Ther Substance Interlaminar Lumbar/Sacral W Image Guide (08/11/2016); Sacroiliac Joint Inject w/Guidance (09/05/2016); EGD, Flexible, Diagnostic (N/A, 04/06/2018); EGD, Flexible, Diagnostic (N/A, 04/08/2020); and breast biopsy (Rig ht). Social History: reports that she has never smoked. She has never used smokeless tobacco. She reports that she does not drink alcohol and does not use drugs. Family History: family history includes Breast Cancer in her mother; Cancer in her grandmother (maternal) and mother; Heart Disorder in her father; Hypertension in her grandmother (maternal) and mother; dementia in her father; none in an other family member. Anesthesia History Type of Anesthesia: General Endotracheal and Caudal block Anesthesia reaction: Yes, Gets nauseous and slightly low O2. Anesthesia team aware of this. History of surgical complications: None Personal history of venous thromboembolic disease: none Physical Exam Vitals: 12/28/23 1111 Temp: 96.4 F (35.8 C) Pulse: 85 Resp: 18 SpO2: 98% BP: 122/78 BMI: 34 General: alert, healthy, and no distress Head: Normocephalic, No masses, lesions, tenderness or abnormalities Eye Exam: PERRLA, extraocular movements intact, conjunctiva are pink and non- injected, sclera clear Ears: External ears normal, Canals clear, TM's Normal Nose: no mucosal erythema, no mucosal edema, no purulent discharge Oropharynx: no exudate, no erythema, lips, buccal mucosa, and tongue normal, and mucous membranes are moist Neck: supple, no adenopathy Lymph: no palpable lymphadenopathy Heart: regular rate & rhythm, no murmur, and no gallops Lungs: chest symmetric with normal AP diameter, no chest deformities noted, no chest wall tenderness, lungs clear to auscultation Pulses: radial=2/4 Abdomen: abdomen soft, non-tender, and normal bowel sounds Back: no costovertebral angle tenderness, Pt has low back tenderness Extremities: less than 2 second capillary refill, no joint deformities, effusion, or inflammation Neuro Exam: alert & oriented x 3 with fluent speech, no focal motor/sensory deficits, gait normal, reflexes normal and symmetric Skin: skin color, texture, turgor are normal, no rashes or significant lesions Labs reviewed and are significant for: Latest Reference Range & Units 12/21/23 00:00 POTASSIUM 3.5 - 5.1 MMOL/L 4.3 (E) CREATININE 0.6 - 1.2 MG/DL 0.62 (E) EGFR ML/MIN 98.15 (E) GLUCOSE 70 - 99 MG/DL 84 (E) HGB 12.0 - 16.0 G/DL 14.3 (E) PROTEIN, UA-OUTSIDE LAB NEGATIVE NEGATIVE (E) (E): External lab result Surgical Risk Scoring Revised Cardiac Risk Index (RCRI) High-risk type of surgery (examples include vascular and any open intraperitoneal or intrathoracic procedures): 0=No History of ischemic heart disease (history of myocardial infarction or positive exercise test, current compliant of chest pain considered to be secondary to myocardia ischemia, use of nitrate therapy, or ECG with pathological Q waves; do not count prior coronary revascularization procedure unless one of the other criteria for ischemic heart disease is present): 0=No History of heart failure: 0=No History of cerebrovascular disease: 0=No Diabetes mellitus requiring treatment with insulin: 0=No Preoperative serum creatinine >2.0 mg/dL (177 micromol/L): 0=No Pt has revised cardiac index score of: No Risk Factors- 0.4% (95% CI: 0.1-0.8) Assessment and Plan Physical exam, routine (Primary) - Based on the patient's HPI and physical examination I feel that the patient is clinically optimized for the given surgical procedure. Functional Assessment They are able to do limited activities due to pain . The patient's functional status is good (greater than 4 METS). 1 MET: 4 METs: 4-10 METs: Can take care of self, such as eat, dress or use the toilet. Can walk to block or go up a flight of steps. Can do heavy house work. Surgical Risk Assessment Patient is low medical risk for the listed procedure. Medication adjustments: Stop Meloxicam. Pt stopped several days ago already. Additional consults or testing: none I spent a total of 20-29 minutes (exact time 25 mins) on the date of service in preparation, delivery, and documentation of the care provided to Darling Gama excluding any time spent in the performance of separately billed services or time spent by another provider/QHP. UZAIR Severino [facility] documented in this encounter Nursing Notes * Jessica Jaimes CCMA - 12/28/2023 11:09 AM EST Chief Complaint Patient presents with pre-op exam Pt is here for pre-op exam, surgery is on 12/[address] Galvez, estela khan documented in this encounter Plan of Treatment Upcoming Encounters Date Type Department Care Team (Late st Contact Info) Description 01/23/2024 11:00 AM EST Appointment Radiology, [address] [place] [phone] Health Maintenance Due Date Last Done [...] Additional history exists Adult Wellness Visit 11/04/2023 GFR 12/20/2024 12/21/2023, 05/07, 11/01/2022, Additional history exists Depression Screening 12/27/2024 12/28/2023, 12/02/19 23 Diabetes Screening 12/20/2026 12/21/2023, 0 05/19/2023, 11/01/2022, Additional history exists Lipid Panel 05/18/2028 05/19/2023, 0304/2022, 04/20/2021, Additional history exists DTap/Tdap Vaccines (4 [...] Not on filedocumented as of this encounter Visit Diagnoses Diagnosis Physical exam, routine- Primary Routine general medical examination at a health care facility documented in this encounter Care Teams Enrollment Clerk Relationship Specialty Start Date End Date Lulú Nowak PA-C [address] [place] [address] PCP - General Physician Warp Scouring Vat Tender 04/06/18 documented as of this encounter
--- OUTSIDE RECORDS SUMMARY | 2024-01-01 10:08 | External Medical Summary | Summary of Care ---
Author Name Unknown Organization [facility] Address [address] [facility] [place] [address] Phone [phone] Care Team Providers Care Senior Project Manager Name Role Phone Lulú Nowak PA-C Primary Care Provider Encounter Details Date Type Department Care Team (Late st Contact Info) Description 12/21/2023 Result Scan Unspecified Department <No scans attached> Allergies Active Allergy Reactions Criticality Noted Date Comments Nickel Hives 12/28/2015 Penicillins Hives 04/27/2001 documented as of this encounter (statuses as of 12/25/2023) Medications Acetaminophen 500 MG Oral Tablet Take [...] as of this encounter (statuses as of 12/25/2023) Active Problems Problem Noted Date Diagnosed Date [...] as of this encounter (statuses as of 12/25/2023) Resolved Problems Problem Noted Date Diagnosed Date Resolved Date Gastroesophageal reflux disease 12/01/2022 12/01/2022 ADVANCE DIRECTIVE INFORMATION 03/14/2005 12/11/2023 Overview (03/14/2005): No, Advance Directive brochure offered , patient declined. 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 file Not on file documented as of this encounter Plan of Treatment Upcoming Encounters Date Type Department Care Team (Late st Contact Info) Description 12/28/2023 11:20 AM EST Office Visit Family Practice, [place] [address] [place] [address] Ayo Elizabeth CRNP [address] [place] [address] 01/23/2024 11:00 AM EST Appointment Radiology, [facility] [address] [facility] [place] [phone] Health Maintenance Due Date Last Done [...] 11/04/2023 Depression Screening 12/02/2023 12/01/2022 GFR 05/18/2024 12/21/2023, 04/1 03/2023, 11/01/2022, Additional history exists Diabetes Screening 05/18/2026 12/21/2023, 0 05/19/2023, 11/01/2022, Additional history exists Lipid Panel 05/18/2028 05/19/2023, 03/2 04/2022, 04/20/2021, Additional history exists DTap/Tdap Vaccines (4 [...] Not on filedocumented as of this encounter Procedures Procedure Name Priority Date/Time Associated Diagnosis Comments EKG SCANNED RESULT 12/21/2023 documented in this encounter Results * EKG SCANNED RESULT (12/21/2023) 12/21/2023 us No Physician Data Unknown EKG Final Result documented in this encounter Care Teams Senior Project Manager Relationship Specialty Start Date End Date Lulú Nowak PA-C [address] [place] [address] PCP - General Physician Carton Liner 04/06/18 documented as of this encounter
--- OUTSIDE RECORDS SUMMARY | 2024-01-01 10:08 | External Medical Summary | Summary of Care ---
Author Name Unknown Organization [facility] Address [address] [facility] [place] [address] Phone [phone] Care Team Providers Care Tread Builder Name Role Phone Lulú Nowak PA-C Primary Care Provider Encounter Details Date Type Department Care Team (Late st Contact Info) Description 12/25/2023 Orders Only [facility] [address] [place] [address] Lulú Nowak PA-C [address] [place] [address] Allergies Active Allergy Reactions Criticality Noted Date [...] Tablet 3 4 9:23 AM EDT 12/02/19 Active rOPINIRole HCl 1 MG Oral Tablet (Requip)Indications:Res tless legs syndrome (RLS) TAKE ONE TABLET BY MOUTH ONE TO THREE HOURS BEFORE BEDTIME WITH FOOD. MAY TAKE AN ADDITIONAL TABLET IF FIRST TABLET FAILS TO WORK. 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 Not on file Not on file documented as of this encounter Plan of Treatment Upcoming Encounters Date Type Department Care Team (Late st Contact Info) Description 12/28/2023 11:20 AM EST Office Visit Family Practice, [place] [address] [place] [address] Ayo Elizabeth CRNP [address] [place] [address] 01/23/2024 11:00 AM EST Appointment Radiology, [facility] [address] [facility] [place] [phone] Health Maintenance [...] Additional history exists Lipid Panel 05/18/2028 05/19/2023, 03/04/2022, 04/20/2021, Additional history exists DTap/Tdap Vaccines (4 [...] Procedure Name Priority Date/Time Associated Diagnosis Comments XR CHEST 2 VIEWS Routine 12/21/2023 CHEMISTRY-OUTSIDE Routine 12/21/2023 documented in this encounter Results * CHEMISTRY-OUTSIDE (12/21/2023) Not all results display below - see scan for full detail OUTSIDE LAB (SEE SCANNED REPORT) Comment:SCAN INCLUDES - PT I NR, PTT, BMP, UA, CBC CREATININE 0.62 0.6 - 1.2 MG/DL OUTSIDE LAB (SEE SCANNED REPORT) EGFR 98.15 ML/MIN OUTSIDE LA B (SEE SCANNED REPORT) POTASSIUM 4.3 3.5 - 5.1 MMOL/L OUTSIDE LAB (SEE SCANNED REPORT) GLUCOSE 84 70 - 99 MG/DL OUTSIDE LAB (SEE SCANNED REPORT) HOURS FASTING OUTSID E LAB (SEE SCANNED REPORT) TRIGLYCERIDES-OU TSIDE LAB OUTSIDE LAB (SEE SCANNED REPORT) CHOLESTEROL-OUTS JEFFERY LAB OUTSIDE LAB (SEE SCANNED REPORT) HDL-OUTSIDE LAB OUTS JEFFERY LAB (SEE SCANNED REPORT) CHOL/HDL RATIO-OUTSIDE LAB OUTSIDE LAB (SEE SCANNED REPORT) LDL (CALCULATED)-OUT SIDE LAB OUTSIDE LAB (SEE SCANNED REPORT) LDL (DIRECT MEASURE)-OUTSIDE LAB OUTSIDE LAB (SEE SCANNED REPORT) HEMOGLOBIN, [id number] LAB OUTSIDE LAB (SEE SCANNED REPORT) PHOSPHORUS-OUTSI DE LAB OUTSIDE LAB (SEE SCANNED REPORT) PTH-OUTSIDE LAB OUTS JEFFERY LAB (SEE SCANNED REPORT) MICROALBUMIN RATIO-OUTSIDE LAB OUTSIDE LAB (SEE SCANNED REPORT) PROTEIN, UA-OUTSIDE LAB NEGATIVE NEGATIVE OUTSIDE LAB (SEE SCANNED REPORT) HGB 14.3 12.0 - 16.0 G/DL OUTSIDE LAB (SEE SCANNED REPORT) 12/21/2023 Ziyad Galvez DO LABORATORY Fin al Result OUTSIDE LAB (SEE SCANNED REPORT) * XR CHEST 2 VIEWS (12/21/2023) Anatomical Region Laterality Modality Chest Other 12/21/2023 Ziyad Galvez DO RADIOLOGY (RAD GENE RAL) Final Result documented in this encounter Care Teams Tread Builder Relationship Specialty Start Date End Date Lulú Nowak PA-C [address] [place] [address] PCP - General Physician Grain Thresher 04/06/18 documented as of this encounter
[2024-01-01] MEDS: LR 15ML/HR IV SCH (10:10)
[2024-01-01] MEDS: CeleBREX 200 MG CAP PO SCH (10:11)
[2024-01-01] MEDS: VANCOMYCIN HCL 1,250 MG in SODIUM CHLORIDE 0.9% 250 ML IV SCH (10:11)
[2024-01-01] MEDS: ACETAMINOPHEN 500 MG TAB PO SCH (10:13)
[2024-01-01] MEDS: GABAPENTIN 300 MG CAP PO SCH (10:13)
[2024-01-01] MEDS ORDERED: DEXAMETHASONE SOD INJ 4 MG/ML VIAL ONE (12:05)
[2024-01-01] MEDS ORDERED: ONDANSETRON INJ 2 MG/ML 2 ML VIAL ONE ×2 (12:05→15:25)
[2024-01-01] MEDS ORDERED: PROPOFOL IV EMULSION 10 MG/ML 20 ML VIAL IV ONE (12:05)
[2024-01-01] MEDS ORDERED: LIDOCAINE 2% 2 ML VIAL/AMP(20MG/ML) INFIL ONE (12:05)
[2024-01-01] MEDS ORDERED: fentaNYL citrate PF 100 MCG/2 ML VIAL ONE ×2 (12:06→14:53)
[2024-01-01] MEDS ORDERED: MIDAZOLAM HCL 1 MG/ML 2ML VIAL ONE (12:06)
[2024-01-01] MEDS ORDERED: LARYING-O-JET KIT (LTA) ONE (12:12)
[2024-01-01] MEDS ORDERED: ROCURONIUM BROMIDE 10 MG/ML 5 ML VIAL IV ONE (12:12)
[2024-01-01] MEDS ORDERED: PROMETHAZINE HCL 6.25 MG in SODIUM CHLORIDE 0.9% 50 ML IV PRN (13:05)
[2024-01-01] MEDS ORDERED: ONDANSETRON INJ 2 MG/ML 2 ML VIAL IV PRN ×2 (13:05→18:15)
[2024-01-01] MEDS ORDERED: ATROPINE SULFATE 0.1 MG/ML 10ML SYR IV PRN (13:05)
[2024-01-01] MEDS ORDERED: ePHEDrine sulfate 50 MG/ML AMP IV PRN (13:05)
--- NOTE | 2024-01-01 13:08 | History & Physical Bridge Note ---
Date of Service January 01, 2024 History & Physical Bridge Note I have examined the patient, reviewed the History & Physical and in the interval since the performance of the History & Physical I have noted the following changes of clinical significance: no changes noted
--- NOTE | 2024-01-01 13:09 | History & Physical Report ---
Date of Service January 01, 2024 Assessment & Plan (1) Postlaminectomy syndrome of lumbosacral region: Plan: T11-L2 decompression fusion, spinal cord stimulator removal History of Present Illness Chief Complaint: Chronic back and leg pain so she has Primary Care Provider: Lulú Nowak PA-C this is a 68-year-old female known to me the presents with worsening back and leg pain after failing course of nonoperative care she is here for surgical invention. Allergies Allergy/AdvReac Type Severity Reaction Status Date / Time nickel Allergy Intermediate Rash Verified 01/01/24 09:38 Penicillins Allergy Intermediate Hives Verified 01/01/24 09:38 Home Medications Medication Instructions Recorded Confirmed Type acetaminophen 500 mg tablet 1,500 mg PO Q6H PRN Pain 03/13/19 01/01/24 History atorvastatin 20 mg tablet (Lipitor) 20 mg PO HS 03/13/19 01/01/24 History duloxetine 60 mg capsule,delayed 60 mg PO HS 03/13/19 01/01/24 History release lisinopril 10 mg tablet 10 mg PO QPM 03/13/19 01/01/24 History meloxicam 15 mg tablet 15 mg PO QPM 03/13/19 01/01/24 History ropinirole 1 mg tablet 2 mg PO HS 06/07/22 01/01/24 History Vitamin K With D3 1 tab PO BID 12/18/23 01/01/24 History multivitamin 1 tab PO DAILY 12/18/23 01/01/24 History pramipexole 1.5 mg tablet 1.5 mg PO QDL 12/18/23 01/01/24 History Past Med/Surg History Problem List Piriformis syndrome Postlaminectomy syndrome of lumbosacral region History of hip surgery 06/09/22 Nasim: Trochanteric bursectomy, Iliotibial band release Greater trochanteric pain syndrome of right lower extremity Bursitis of right hip Lumbosacral radiculopathy at L4 Ulnar neuropathy at elbow of left upper extremity Postoperative hypoxia Depression Neurogenic claudication due to lumbar spinal stenosis Encounter for pre-operative examination History of total right knee replacement GERD (gastroesophageal reflux disease) controlled no longer on meds Anxiety Hypertension DJD (degenerative joint disease) of knee Medical History PONV (postoperative nausea and vomiting) Postoperative hypoxia "has happened more than one time" as per patient HTN (hypertension) History of stomach ulcers x2- no recent issues GERD (gastroesophageal reflux disease) well controlled and stable Anxiety and depression Hyperlipidemia History of COVID-24 Jan 2022 > not hospitalized Spinal cord stimulator status instructed to bring remote DJD (degenerative joint disease) Osteoarthritis Hiatal hernia Obesity Spondylolisthesis Spinal stenosis Restless leg syndrome Surgical History History of hip surgery Right Hip Endoscopic Bursectomy 06/07/22= Done under [place] with Grade 1 view with MAC #3. ETT #7. Atraumatic DL x 1 History of total right knee replacement (TKR) History of lumbar laminectomy History of bilateral tubal ligation History of breast biopsy right > benign History of arthroscopy left ankle History of esophagogastroduodenoscopy (EGD) History of tooth extraction History of lumbar spinal fusion L2-S1 decompression/fusion: 04/08/2019: Grade view 3, MAC #3.0, ETT 7.0 at [facility] History of trigger finger with release right hand x2 History of carpal tunnel surgery of right wrist History of bunionectomy of both great toes History of partial hysterectomy Family History Mother Breast cancer Social History Smoking Status: Never smoker Second Hand Exposure: No; Do You Dip or Chew Tobacco: No; Tobacco Cessation Education Requested by Patient: No Hx Alcohol Use: No Hx Substance Use: No Preferred Language: Gambian Communication Ability: Effective Mason Liner Required: No Beliefs That Will Affect Care: None marital status: Current Living Situation: Spouse Other Information That Helps Us Care for You: No Feels Safe at Home: Yes Safety Concerns: Feels Safe At This Time Assistive Devices: Glasses and Other Assistive Devices Comment: [place] Physical Exam Physical Exam: Patient is alert and oriented heart regular rhythm Lungs clear Results & Data Results & Data Vital Signs (Past 12 Hours) Vital Signs Temp Pulse Resp BP Pulse Ox O2 Del Method 01/01/24 09:43 36.6 C 84 20 128/81 97 Room Air
[2024-01-01] MEDS: ceFAZolin 330 MG/ML 1 GM VIAL ONE (13:53)
[2024-01-01] MEDS ORDERED: SUGAMMADEX SODIUM 200 MG/2 ML VIAL IV ONE (15:24)
[2024-01-01] MEDS ORDERED: ePHEDrine sulfate 50 MG/ML AMP ONE (15:29)
[2024-01-01] MEDS ORDERED: SODIUM CHLORIDE 0.9% PF INJ 10 ML VIAL ONE (15:29)
--- NOTE | 2024-01-01 16:07 | Operative Report ---
Post Operative Report Pre & Post Diagnosis Operation Date: 01/01/24 11:35 Pre-Op Diagnosis: Spinal Stenosis of Lumbar Region with Radiculopathy Post-Op Diagnosis: Spinal Stenosis of Lumbar Region with Radiculopathy I identified the patient and participated in the time-out.: Yes Procedure Operation Date: 01/01/24 11:35 Actual Procedures #1 removal of spinal cord stimulator paddle and battery. #2 revision revision laminotomy T10. #3 lumbar decompression with bilateral medial facetectomies and foraminotomies T12 and L1. #4 posterior spinal fusion T8 11 to L1. #5 placed posterior instrumentation T11-L1 with connectors at L2-L3. #6 interbody fusion L1-L2. #7 placement of Spira 8 x 22 mm at L1-L2. #8 placement infuse collagen sponge, with Koros in the posterior lateral gutters and os design bone graft interbody space. #9 locally harvested morselized autograft posterior gutters. #10 placement of versa wrap over the exposed dura. Surgeon Ziyad Galvez, DO Judicial Registrar Mahogany Hedrick Estimated Blood Loss 350 Findings See Below The patient is 5 foot tall weighing over 70 kg a BMI in excess of 33. Patient's body habitus did create significant technical difficulty with positioning exposure and the procedure itself and at least 50% increased operative time. Specimens None Indications This is a 68-year-old female known to me the presents problems diagnosis of failed course of nonoperative care is here for surgical invention. Description of Procedure Patient was met with preoperatively case discussed all questions addressed. Then put patient was taken back to op suite underwent ablation placed in a prone position on the Lucas table top of the Nasim frame. All bony prominences well-padded eyes inspected to ensure no external pressure placed upon the. This point the thoracolumbar spine was prepped and draped in a sterile fashion. I then opened the battery pocket over the right flank of the lumbar spine. The battery was removed without difficulty. Sharp dissection with assisted Bovie cautery as informed down to and exposing the laminotomy site at T10 the lamina transverse processes of T11-T12 L1 and instrumentation at L2-L3. Then formed a revision laminotomy T10 to release the scar and safely remove the paddle and remaining leads. Then performed a complete laminectomy of L1 and partial laminectomy of T12 including bilateral medial facetectomies and foraminotomies addressing severe spinal stenosis. Pedicle screws then placed in T11 T12-L1 bilaterally with assistance of fluoroscopy and connectors attached to the rods between the pedicles of L2-L3. By way of transforaminal approach on the right discectomy of L1-L2 was performed endplates guarded to subcortical bleeding bone and 8 x 22 mm Spira cage filled with os design bone graft tapped in position. The proper size rods were then contoured and placed bilaterally. They are locked into position. The transverse processes of T11-T12 L1-L2 burred to subcortical bleeding bone. Infuse collagen sponge combined with Koros and local autograft placed in the posterior gutters. 15 round CIRA inserted. Versa wrap placed over the exposed dura. Incision was then closed with 1 Vicryl the fascia 2-0 Vicryl subcutaneously and 4 Monocryl for final skin closure. Steri-Strips sterile dressing placed. Patient waken taken PACU stable condition. Please note spinal cord monitoring was utilized at the procedure no changes noted. Mahogany Hedrick was present at the entire surgery and while the patient positioning complex portion of the surgery possible closure. Im ordering 20 grams of Triple [place] Collagen Powder ([employer] [id number]) to treat an incision wound that was c aused by a spine procedure. The incision is approximately 2 cm(W) x 4 cm(L) into the joint (D) in size and is a full thickness wound. Triple [place] collagen comes in 1 gram packets so 20 packets were ordered. Given the size of the wound, with light to moderate exudate I chose to order a 20 day supply. The patient will be provided instructions for proper application of the collagen wound kit. The patient will be asked to apply the collagen powder daily and then cover it with sterile dressings dispensed. Collagen was selected as I expect the collagen to attract monocytes and fibroblasts, act as a sacrificial substrate for MMPs, and ultimately proved a matrix for tissue and vessel growth. The collagen will act as a primary dressing in this scenario. It is medically necessary for proper healing of these wounds to improve bioavailability and contact with each wound surface, this is also to help prevent infection of wounds and promote healing ultimately leading to a better healing outcome and limit the risk of infection. I attest to the content of the Intraoperative Record and any orders documented therein. Any exceptions are noted below.
--- NOTE | 2024-01-01 16:11 | Fluoroscopy Report ---
FL lumbar spine 2-3V CLINICAL HISTORY: T11-L2 DECOMPRESSION AND FUSION COMPARISON STUDY: Lumbar spine CT April 11, 2019. Lumbar spine fluoroscopic images February 05, 2020. FLUOROSCOPY TIME: 41 seconds. Ka,r: 21.91 mGy FLUOROSCOPIC IMAGES: 3 FINDINGS: Exact localization is not possible given partial visualization of the lumbar spine. These i mages partially visualize a thoracolumbar spine fusion and decompression with discectomy and interbod y spacer placement. Visualized portions of the hardware are intact. IMPRESSION: Fluoroscopy provided during multilevel decompression and fusion. ACT 112: Negative or not required by law. Electronically signed by: Gilles Ruvalcaba M.D. 01/01/2024 4:08 PM
[2024-01-01] MEDS: FLOSEAL HEMOSTATIC MATRIX 10ML TOP ONE (16:12)
[2024-01-01] MEDS: BUPIVACAINE/EPINEPHRINE 0.25% 1:200,000 30 ML VIAL ONE (16:12)
[2024-01-01] MEDS: fentaNYL citrate PF 100 MCG/2 ML VIAL IV PRN (16:45)
[2024-01-01] MEDS: HYDROmorphone INJ 2 MG/ML SYR/VIAL IV PRN (17:15)
[2024-01-01] MEDS ORDERED: LORazepam 2 MG/1 ML VIAL IV PRN (18:15)
[2024-01-01] MEDS ORDERED: ONDANSETRON 4 MG OD TAB PO PRN (18:15)
[2024-01-01] MEDS ORDERED: MAGNESIUM HYDROXIDE SUSP 30 ML UDC PO PRN (18:15)
[2024-01-01] MEDS ORDERED: bisacodyL 10 MG SUPP PR PRN (18:15)
[2024-01-01] MEDS ORDERED: hydrOXYzine HCl 25 MG TAB PO PRN (18:15)
[2024-01-01] MEDS ORDERED: diphenhydrAMINE Capsule 25 MG CAP PO PRN (18:15)
[2024-01-01] MEDS ORDERED: DO NOT ADMINISTER FLU VACCINE PRN (18:15)
[2024-01-01] MEDS ORDERED: HYDROmorphone INJ 1 MG/ML SYRINGE IV PRN (18:15)
[2024-01-01] MEDS ORDERED: METOCLOPRAMIDE HCL INJ 5 MG/ML 2 ML VIAL IV PRN (18:15)
[2024-01-01] MEDS ORDERED: NALOXONE HCL 0.4 MG/1 ML VIAL/CARP IV PRN (18:15)
[2024-01-01] MEDS ORDERED: SOD PHOSPHATE/SOD BIPHOSPHATE ENEMA 132 ML BTL PR PRN (18:15)
[2024-01-01] MEDS ORDERED: HYDROmorphone INJ 0.5 MG/0.5 ML SYR IV PRN (18:15)
[2024-01-01] MEDS ORDERED: ALUMINUM/MAGNESIUM SUSP 30 ML UDC PO PRN (18:15)
[2024-01-01] MEDS ORDERED: ACETAMINOPHEN 1,000 MG/100 ML VIAL IV PRN (18:15)
[2024-01-01] MEDS ORDERED: DO NOT ADMINISTER PNEUMOCOCCAL VACCINE PRN (18:15)
[2024-01-01] MEDS ORDERED: PROMETHAZINE 12.5 MG/50.5 ML BAG IV PRN (18:15)
--- NOTE | 2024-01-01 18:27 | Consultation ---
Date of Consultation January 01, 2024 Assessment & Plan (1) Neurogenic claudication due to lumbar spinal stenosis: (2) Hypertension: (3) Anxiety: (4) Depression: (5) GERD (gastroesophageal reflux disease): Plan Ms. Gama is a 68 year old female that presented to the [facility] for an elective T11-L2 decompression and fusion surgery with spinal cord stimulator removal under the care of Dr. Galvez after failed non-operative conservative management. Past medical history includes HTN, HLD, depression, RLS. Preop labs were unremarkable. Patient just came up from PACU and was still quite drowsy but arousable and able to answer all questions appropriately. Patient without neur opathy in lower extremities. Neurogenic claudication due to lumbar spinal stenosis: POD# 0 s/p T11-L2 decompression and fusion surgery with spinal cord stimulator removal under the care of Dr. Galvez. Per ortho for pain control, wound care, anticoagulation and activities. Monitor H&H, baseline Hgb 14.3 from 12/20 continue incentive spirometry; She is on 4L NC with saturations 94 to 96%. Suspect that when she is more awake she will be able to start working with incentive spirometry and wean off oxygen as tolerated Was taking Mobic and Flexeril pre surgery PT/OT when appropriate HTN: Chronic Takes lisinopril; continue HLD: Chronic Takes atorvastatin; continue Last lipid panel: 05/2023: TG 66, HDL 61, LDL 45 Depression and anxiety: Chronic Takes duloxetine; continue Disposition: PCP Dr. Lulú Nowak CODE STATUS: Full code VTE prophylaxis: Per admitting team I spent a total of 60 minutes coordinating, documenting, and providing care for this patient excluding time spent in the performance of separately billed services. All of the aforementioned completed while collaborating with the assigned attending physician for a full treatment plan. Please see their addendum for further details. Supervising Physician Co-Signing Physician Notes Attending addendum: The patient was seen and examined in medical floor She is status post T1-L2 decompression and fusion and removal of the spinal cord stimulator She has been drowsy secondary to medication used but denies any significant symptoms On examination Lying in bed with weakness and drowsy Hemodynamically stable with blood pressure on the upper side at 145/80 Chestclear to auscultate bilaterally HeartS1-S2, regular Abdomenbenign Extremitiesno edema CNSalert and awake, drowsiness secondary to medications, moves all extremities Her preadmission labs, EKG and imaging studies reviewed Remains medically stable following T11-L2 decompression fusion and spinal cord stimulator removal on 01/01/2024 at 1135 hrs. Her other significant medical conditions as mentioned earlier remain stable Will have CBC and PRP checked tomorrow and will follow the patient while in the hospital Agree with assessment plan as outlined above by Lilia DUNNE and take the full responsibility of care Dr Andreas Vanegas History of Present Illness Requesting Physician: Dr. Galvez Reason for Consultation: post operative medical management Attending Physician: Ziyad Galvez DO History of Present Illness Ms. Gama is a 68 year old female that presented to the [facility] for an elective T11-L2 decompression and fusion surgery with spinal cord stimulator removal under the care of Dr. Galvez after failed non-operative conservative management. Past medical history includes HTN, HLD, depression, RLS. Preop labs were unremarkable. Patient just came up from PACU and was still quite drowsy but arousable and able to answer all questions appropriately. Patient without n europathy in lower extremities. Patient denies chest pain, dizziness, headache, shortness of breath, palpitations, nausea, vomiting, diarrhea. Patient with CIRA drain x 1 on her left side with bright red blood output. Patient states that her Geo is on his way to the hospital; Gave him a call to provide him with an update. [facility] hospitalist service was consulted for postoperative medical management. Please see A/P for further details. Allergies Allergy/AdvReac Type Severity Reaction Status Date / Time nickel Allergy Intermediate Rash Verified 01/01/24 09:38 Penicillins Allergy Intermediate Hives Verified 01/01/24 09:38 Home Medications Medication Instructions Recorded Confirmed Type acetaminophen 500 mg tablet 1,500 mg PO Q6H PRN Pain 03/13/19 01/01/24 History atorvastatin 20 mg tablet (Lipitor) 20 mg PO HS 03/13/19 01/01/24 History duloxetine 60 mg capsule,delayed 60 mg PO HS 03/13/19 01/01/24 History release lisinopril 10 mg tablet 10 mg PO QPM 03/13/19 01/01/24 History meloxicam 15 mg tablet 15 mg PO QPM 03/13/19 01/01/24 History ropinirole 1 mg tablet 2 mg PO HS 06/07/22 01/01/24 History Vitamin K With D3 1 tab PO BID 12/18/23 01/01/24 History multivitamin 1 tab PO DAILY 12/18/23 01/01/24 History pramipexole 1.5 mg tablet 1.5 mg PO QDL 12/18/23 01/01/24 History Patient History Medical History PONV (postoperative nausea and vomiting) Postoperative hypoxia "has happened more than one time" as per patient HTN (hypertension) History of stomach ulcers x2- no recent issues GERD (gastroesophageal reflux disease) well controlled and stable Anxiety and depression Hyperlipidemia History of COVID-24 Jan 2022 > not hospitalized Spinal cord stimulator status instructed to bring remote DJD (degenerative joint disease) Osteoarthritis Hiatal hernia Obesity Spondylolisthesis Spinal stenosis Restless leg syndrome Surgical History History of hip surgery Right Hip Endoscopic Bursectomy 06/07/22= Done under [place] with Grade 1 view with MAC #3. ETT #7. Atraumatic DL x 1 History of total right knee replacement (TKR) History of lumbar laminectomy History of bilateral tubal ligation History of breast biopsy right > benign History of arthroscopy left ankle History of esophagogastroduodenoscopy (EGD) History of tooth extraction History of lumbar spinal fusion L2-S1 decompression/fusion: 04/08/2019: Grade view 3, MAC #3.0, ETT 7.0 at [facility] History of trigger finger with release right hand x2 History of carpal tunnel surgery of right wrist History of bunionectomy of both great toes History of partial hysterectomy Family History Mother Breast cancer Social History Smoking Status: Never smoker Second Hand Exposure: No; Do You Dip or Chew Tobacco: No; Tobacco Cessation Education Requested by Patient: No Hx Alcohol Use: No Hx Substance Use: No Preferred Language: Bengali Communication Ability: Effective Guest Service Host Required: No Beliefs That Will Affect Care: None marital status: Current Living Situation: Spouse Other Information That Helps Us Care for You: No Feels Safe at Home: Yes Safety Concerns: Feels Safe At This Time Assistive Devices: Glasses and Other Assistive Devices Comment: [place] Review of Systems Review of Systems: Neuro: (-) Falls, trauma, slurred speech HEENT: (-) LEWIS, dizziness, dysphagia, visual or auditory changes CV: (-) CP, palpitations, swelling Resp: (-) SOB GI: (-) appetite changes, N/V/D, bowel changes : (-) urinary changes Skin: (-) rashes Psych: (-) anxiety, depression Physical Exam Physical Exam: Neuro: AAOx4, PERRLA, no aphagia, memory changes, CNII-XII grossly intact HEENT: head normocephalic, moist mucus membranes CV: S1/S2, (-) M/G/R, (-) edema, cap refill < 3 seconds CIRA drain x1 Left side with gross red blood Resp: Lungs CTA in all ta. On RA GI/: Abdomen S/NT/ND, Ax4 bowel sounds, (-) CVA tenderness. Has a Sheikh catheter in place draining clear yellow urine Musculoskeletal: 5/5 B/L UE strength, 5/5 B/L LE strength. No gait disturbance Skin: (-) rashes , (-) erythema. Psych: euthymic mood Results & Data Vital Signs (Past 12 Hours) Vital Signs Temp Pulse Pulse Resp BP Pulse Ox O2 Del Method 01/01/24 18:18 36.7 C 93 H 14 145/80 H 96 Nasal Cannula 01/01/24 18:00 37 C 91 H 15 121/65 98 Oxymask 01/01/24 17:45 37 C 94 H 14 117/66 99 Oxymask 01/01/24 17:35 94 H 16 132/80 99 Oxymask 01/01/24 17:25 84 20 121/67 100 Oxymask 01/01/24 17:15 86 19 119/72 99 Oxymask 01/01/24 17:05 81 17 112/74 100 Oxymask 01/01/24 16:55 84 19 114/62 100 Oxymask 01/01/24 16:45 91 H 19 123/73 100 Oxymask 01/01/24 16:35 69 14 107/57 L 100 Oxymask 01/01/24 16:25 36.4 C L 90 23 118/74 98 Oxymask 01/01/24 09:43 36.6 C 84 20 128/81 97 Room Air O2 Flow Rate 01/01/24 18:18 4 01/01/24 18:00 4 01/01/24 17:45 4 01/01/24 17:35 4 01/01/24 17:25 4 01/01/24 17:15 4 01/01/24 17:05 6 01/01/24 16:55 6 01/01/24 16:45 6 01/01/24 16:35 8 01/01/24 16:25 8 01/01/24 09:43 Diagnostic Findings Lumbar Spine X-Ray 01/01/24 11:35 FL lumbar spine 2-3V CLINICAL HISTORY: T11-L2 DECOMPRESSION AND FUSION COMPARISON STUDY: Lumbar spine CT April 11, 2019. Lumbar spine fluoroscopic images February 05, 2020. FLUOROSCOPY TIME: 41 seconds. Ka,r: 21.91 mGy FLUOROSCOPIC IMAGES: 3 FINDINGS: Exact localization is not possible given partial visualization of the lumbar spine. These images partially visualize a thoracolumbar spine fusion and decompression with discectomy and interbody spacer placement. Visualized portions of the hardware are intact. IMPRESSION: Fluoroscopy provided during multilevel decompression and fusion. ACT 112: Negative or not required by law. Electronically signed by: Gilles Ruvalcaba M.D. 01/01/2024 4:08 PM (4) Depression Depression Type: unspecified Qualified Code(s): F32.A - Depression, unspecified
[2024-01-01] MEDS: DULoxetine HCL 60 MG CAP PO SCH (20:15)
[2024-01-01] MEDS: DOCUSATE SODIUM/SENNA 50/8.6MG TAB PO SCH (20:15)
[2024-01-01] MEDS: CLINDAMYCIN/D5W 600 MG/50 ML BAG IV SCH (20:15)
[2024-01-01] MEDS: lisinopril 10 MG TAB PO SCH (20:15)
[2024-01-01] MEDS: ATORVASTATIN 20 MG TAB PO SCH (20:15)
[2024-01-01] MEDS: rOPINIRole HCL 2 MG TABLET PO SCH (20:15)
[2024-01-01] MEDS: ACETAMINOPHEN 500 MG TAB PO PRN (20:31)
[2024-01-01] MEDS ORDERED: [UNRECOGNIZED DRUG - OTHER] PO SCH (21:00)
[2024-01-01] MEDS: oxyCODONE HCL IR 5 MG TAB (IMMEDIATE RELEASE) PO PRN (22:33)
[2024-01-02] MEDS: FAMOTIDINE 20 MG TAB PO PRN (04:11)
[2024-01-02] MEDS: POLYETHYLENE (MIRALAX) 17 GM PACK PO SCH (06:10)
[2024-01-02 08:23] LABS: Calcium 8.6 mg/dl (8.6-10.3); Potassium 4.4 mmol/L (3.5-5.1)
[2024-01-02] MEDS: dexAMETHasone 6 MG in SYRINGE 0 ML IV SCH (08:27)
[2024-01-02] MEDS: MULTIVITAMIN TAB PO SCH (08:27)
[2024-01-02 08:29] LABS: BUN Creatinine Ratio 37.7 (10-20); Creatinine Clr Calc Pharmacy 96.8 ml/min
[2024-01-02 08:35] LABS: Basophils # (auto) 0.01 K/uL (0.00-0.20); Basophils % (auto) 0.1 %; Hematocrit (blood only) 38.3 % (37.0-47.0); Hemoglobin 12.4 g/dl (12.0-16.0); Immature Granulocytes # (auto) 0.06 K/uL (0.01-0.20); Immature Granulocytes % (auto) 0.5 %; Lymphocytes # (auto) 0.72 K/uL (1.20-3.40); Lymphocytes % (auto) 5.5 %; Mean Corpuscular Hemoglobin 31.4 pg (25.0-34.0); Mean Corpuscular Hgb Conc 32.4 g/dL (32.0-36.0); Mean Platelet Volume 10.5 fL (9.4-12.4); Monocytes # (auto) 0.52 K/uL (0.11-0.59); Neutrophils % (auto) 89.9 %; Platelet Count 191 K/uL (130-400); RDW Coefficient of Variation 13.3 % (11.5-14.5); RDW Standard Deviation 48.1 fL (36.4-46.3); Red Blood Count 3.95 M/uL (4.20-5.40); White Blood Count 13.01 K/ul (4.8-10.8)
--- NOTE | 2024-01-02 11:03 | Hospitalist Progress Note ---
Date of Service January 02, 2024 Assessment & Plan (1) Neurogenic claudication due to lumbar spinal stenosis: (2) Hypertension: (3) Anxiety: (4) Depression: (5) GERD (gastroesophageal reflux disease): Plan 68 year old female that presented to the [facility] for an elective T11-L2 decompression and fusion surgery with spinal cord stimulator removal under the care of Dr. Galvez after failed non-operative conservative management. Past medical history includes HTN, HLD, depression, RLS. Neurogenic claudication due to lumbar spinal stenosis: S/p T11-L2 decompression and fusion surgery with spinal cord stimulator removal under the care of Dr. Galvez. POD 1 Pain is controlled Post op Hb 12.4 PT/OT eval Hypertension Hypotensive this AM Will hold home lisinopril for now and monitor HLD: Chronic Takes atorvastatin; continue Last lipid panel: 05/2023: TG 66, HDL 61, LDL 45 Depression and anxiety: Chronic Takes duloxetine; continue Disposition: PCP Dr. Lulú Nowak CODE STATUS: Full code Admission and Anticipated Discharge Date Admission Date: January 01, 2024 Subjective Patient seen and examined Reports surgical site pain is under control Reports some left arm numbness which may be related to BP cuff No other complaints on ROS Physical Exam Constitutional: + well hydrated and + obese; no acute di stress Eyes: PERRL, conjunctivae normal, anicteric sclerae ENMT: external ear and nose normal, oropharynx normal Respiratory: normal respiratory effort, lungs clear to auscultation Cardiovascular: Rate/Rhythm: regular rate and regular rhythm Gastrointestinal (Abdomen): normal bowel sounds, soft, nontender, no hepatosplenomegaly Musculoskeletal: Clean dressing over surgical site with drain in situ Neurologic: PERRL, EOMI, accommodation nl, no face palsy, no dysarthria Psychiatric: A+Ox3, euthymic affect Results & Data Results & Data Vital Signs (Past 12 Hours) Vital Signs Temp Pulse Resp BP BP Pulse Ox O2 Del Method 01/02/24 07:07 36.6 C 81 18 102/62 94 Room Air 01/02/24 05:45 36.4 C L 79 16 89/56 L 92 Room Air 01/02/24 03:13 85 97/62 L 01/02/24 01:44 36.5 C 84 16 94/57 L 98 Nasal Cannula O2 Flow Rate 01/02/24 07:07 01/02/24 05:45 01/02/24 03:13 01/02/24 01:44 2 Laboratory Results Abnormal lab results 01/02/24 Range/Units 07:38 WBC 13.01 H (4.8-10.8) K/ul RBC 3.95 L (4.20-5.40) M/uL RDW Std Deviation 48.1 H (36.4-46.3) fL Neut # (Auto) 11.70 H (1.40-6.50) K/uL Lymph # (Auto) 0.72 L (1.20-3.40) K/uL Creatinine 0.53 L (0.6-1.2) mg/dl BUN/Creatinine Ratio 37.7 H (10-20) Glucose 116 H (70-99(Fasting)) mg/dl (4) Depression Depression Type: unspecified Qualified Code(s): F32.A - Depression, unspecified
[2024-01-02] MEDS: PRAMIPEXOLE DIHYDROCHLO 0.5 MG TAB PO SCH (11:40)
--- NOTE | 2024-01-02 12:59 | Orthopedic Progress Note ---
Date of Service January 02, 2024 Assessment & Plan (1) Neurogenic claudication due to lumbar spinal stenosis: Plan: At this time we will continue physical therapy monitor CIRA output anticipate discharge home the next few days. Admission and Anticipated Discharge Date Admission Date: January 01, 2024 Subjective Back pain is controlled leg pain improved Physical Exam Physical Exam: Patient is good strength testing. She is comfortable. Results & Data Vital Signs (Past 12 Hours) Vital Signs Temp Pulse Resp BP BP Pulse Ox O2 Del Method 01/02/24 11:08 36.9 C 82 17 132/74 96 Room Air 01/02/24 07:07 36.6 C 81 18 102/62 94 Room Air 01/02/24 05:45 36.4 C L 79 16 89/56 L 92 Room Air 01/02/24 03:13 85 97/62 L 01/02/24 01:44 36.5 C 84 16 94/57 L 98 Nasal Cannula O2 Flow Rate 01/02/24 11:08 01/02/24 07:07 01/02/24 05:45 01/02/24 03:13 01/02/24 01:44 2 Queries Orthopedic Spine Obesity: Yes
[2024-01-02] MEDS: traMADol HCL 50 MG TABLET PO PRN (17:53)
[2024-01-02] MEDS: LORazepam 0.5 MG TAB PO PRN (19:39)
[2024-01-03 08:41] LABS: BUN Creatinine Ratio 30.4 (10-20); Calcium 8.3 mg/dl (8.6-10.3); Creatinine Clr Calc Pharmacy 91.6 ml/min; Potassium 3.9 mmol/L (3.5-5.1)
--- NOTE | 2024-01-03 10:17 | CT Scan Report ---
CT OF THE ABDOMEN AND PELVIS WITHOUT CONTRAST CLINICAL HISTORY: LLQ/pubic pain COMPARISON STUDY: MRI of the pelvis July 26, 2021. TECHNIQUE: Axial images of the abdomen and pelvis were obtained without IV contrast. Images were revi ewed in the axial, sagittal, and coronal planes. Automated exposure control was utilized for the refugio dy. A dose lowering technique was utilized adhering to the principles of ALARA. FINDINGS: Subpleural opacities represent atelectasis. There are trace bilateral pleural effusions. Po stoperative findings within the spine are noted. A gas and fluid containing right flank collection re presents previous site of spinal cord stimulator which has been removed. There are no urinary calculi . There is no hydronephrosis. Evaluation of the remainder of the abdomen and pelvis is suboptimal on this unenhanced exam. There is no evidence for a bowel obstruction. The gallbladder is distended with out pericholecystic infiltration. Liver, spleen, adrenal glands and pancreas are unremarkable. A fat- containing left adnexal lesion is unchanged since MRI. This measures 2.9 cm and contains a radiodensi ty consistent with a tooth. There is no free fluid. Sigmoid diverticulosis is present. There is no ev idence for acute diverticulitis. Moderate sized hiatal hernia is present. IMPRESSION: 1. No urinary calculi or hydronephrosis. 2. Distended gallbladder without pericholecystic infiltration. If right upper quadrant pain, ultrasou nd is recommended. 3. No bowel obstruction. Sigmoid diverticulosis. No evidence for acute diverticulitis. 4. 2.9 cm left ovarian dermoid. ACT 112: Negative or not required by law. Electronically signed by: Gilles Ruvalcaba M.D. 01/03/2024 10:15 AM
--- NOTE | 2024-01-03 10:35 | Anesthesiology Progress Note ---
Date of Service January 03, 2024 Anesthesia Post Procedure Vital Signs Vital Signs: Temp Pulse Resp BP Pulse Ox O2 Del Method 01/03/24 07:12 36.6 C 78 22 100/66 94 Room Air 01/02/24 20:24 36.7 C 88 20 100/65 96 Room Air 01/02/24 15:21 36.9 C 78 17 104/67 93 Room Air 01/02/24 11:08 36.9 C 82 17 132/74 96 Room Air Pain Intensity Back: Pain Intensity: 5 Lower Buttock: Pain Intensity: 10 Transfer of Care Handoff Completed per policy Notes Mental Status: alert / awake / arousable Patient Amnestic to Procedure: Yes Nausea / Vomiting: adequately controlled Pain: adequately controlled Airway Patency, RR, SpO2: stable & adequate BP & HR: stable & adequate Hydration State: stable & adequate Anesthetic Complications: no major complications apparent and Pt Satisfied with anesthetic care Notes: Patient seen, evaluated, and discharged from recovery on 12/31. note entry delayed.
--- NOTE | 2024-01-03 11:09 | Hospitalist Progress Note ---
Date of Service January 03, 2024 Assessment & Plan (1) Neurogenic claudication due to lumbar spinal stenosis: (2) Hypertension: (3) Anxiety: (4) Depression: (5) GERD (gastroesophageal reflux disease): Plan 68 year old female that presented to the [facility] for an elective T11-L2 decompression and fusion surgery with spinal cord stimulator removal under the care of Dr. Galvez after failed non-operative conservative management. Past medical history includes HTN, HLD, depression, RLS. Neurogenic claudication due to lumbar spinal stenosis: S/p T11-L2 decompression and fusion surgery with spinal cord stimulator removal under the care of Dr. Galvez. POD 2 Pain is controlled Post op Hb 12.4 PT/OT eval Inguinal/Pelvic Pain CT a/p to r/o nephrolithiasis --CT a/p No urinary calculi or hydronephrosis.2. Distended gallbladder without pericholecystic infiltration. If right upper quadrant pain, ultrasound is recommended.3. No bowel obstruction. Sigmoid diverticulosis. No evidence for cute diverticulitis.4. 2.9 cm left ovarian dermoid. 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 Lulú Nowak CODE STATUS: Full code Pt was seen and examined in collaboration with Dr. Doss, please see addendum I spent a total of 42 minutes reviewing notes, outpatient records, labs, me dication, coordinating, documenting and providing care for this patient excluding time spent in the performance of separately billed services. Admission and Anticipated Discharge Date Admission Date: January 01, 2024 Subjective Pt c/o of significant pain in L pubic/inguinal region with movement. She is in tears. She states it is sharp/stabbing and sometimes going around her back. Denies f/c/s, chest pain, sob, n/v. SHe has not yet moved her bowels. She denies any dysuria, increased urg/freq or hematuria. "I am so sick of the pain." She denies any recent fall/trauma related to the pain. She denies any twisting or mechanism of inj that she is aware of. SHe denies any numbness or tingling to lower ext. Review of Systems Review of Systems: All systems reviewed & are unremarkable except as noted in HPI & below Physical Exam Physical Exam: Gen: WD/WN, NAD, A&O x3 HEENT: Normocephalic, atraumatic, conjunctivae moist, sclerae anicteric, mucous membranes moist. Lung: Clear to Auscultation bilaterally, no wheezes/rales/rhonchi Heart: Regular rate, regular rhythm, no murmurs, rubs, or gallops Abdomen: Soft, NT, ND +BS x 4, + pain to palpation in pubic region extending lateral inguinal region Extremities: No edema, + lumbar dressing CDI, dale intact with serosange drainage, + Pain with AROM of LLE with hip flexion/abduction/adduction Skin: Warm, no rash, negative turgor. Results & Data Results & Data Vital Signs (Past 12 Hours) Vital Signs Temp Pulse Resp BP Pulse Ox O2 Del Method 01/03/24 07:12 36.6 C 78 22 100/66 94 Room Air Laboratory Results BMP 01/03/24 07:52 Sodium 142 Potassium 3.9 Chloride 105 Carbon Dioxide 32 BUN 17 Creatinine 0.56 L Glucose 113 H Calcium 8.3 L Diagnostic Findings Abdomen/Pelvis CT 01/03/24 08:30 CT OF THE ABDOMEN AND PELVIS WITHOUT CONTRAST CLINICAL HISTORY: LLQ/pubic pain COMPARISON STUDY: MRI of the pelvis July 26, 2021. TECHNIQUE: Axial images of the abdomen and pelvis were obtained without IV contrast. Images were reviewed in the axial, sagittal, and coronal planes. Automated exposure control was utilized for the study. A dose lowering technique was utilized adhering to the principles of ALARA. FINDINGS: Subpleural opacities represent atelectasis. There are trace bilateral pleural effusions. Postoperative findings within the spine are noted. A gas and fluid containing right flank collection represents previous site of spinal cord stimulator which has been removed. There are no urinary calculi. There is no hydronephrosis. Evaluation of the remainder of the abdomen and pelvis is suboptimal on this unenhanced exam. There is no evidence for a bowel obstruction. The gallbladder is distended without pericholecystic infiltration. Liver, spleen, adrenal glands and pancreas are unremarkable. A fat-containing left adnexal lesion is unchanged since MRI. This measures 2.9 cm and contains a radiodensity consistent with a tooth. There is no free fluid. Sigmoid diverticulosis is present. There is no evidence for acute diverticulitis. Moderate sized hiatal hernia is present. IMPRESSION: 1. No urinary calculi or hydronephrosis. 2. Distended gallbladder without pericholecystic infiltration. If right upper quadrant pain, ultrasound is recommended. 3. No bowel obstruction. Sigmoid diverticulosis. No evidence for acute diverticulitis. 4. 2.9 cm left ovarian dermoid. ACT 112: Negative or not required by law. Electronically signed by: Gilles Ruvalcaba M.D. 01/03/2024 10:15 AM Medications Administered Current Inpatient Medications Acetaminophen (Acetaminophen 500 Mg Tab) 1,000 mg PO Q8H PRN PRN Reason: MILD Pain Scale 1,2,3 & Pre PT Stop: 01/31/24 18:14 Last Admin: 01/02/24 13:21 Dose: 1,000 mg Al Hydrox/Mg Hydrox/Simethicone (Aluminum/Magnesium Susp 30 Ml Udc) 30 ml PO Q6H PRN PRN Reason: Dyspepsia Stop: 01/31/24 18:14 Atorvastatin Calcium (Atorvastatin 20 Mg Tab) 20 mg PO HS DELPHINE Stop: 01/31/24 20:59 Last Admin: 01/02/24 19:39 Dose: 20 mg Bisacodyl (Bisacodyl 10 Mg Supp) 10 mg ND DAILY PRN PRN Reason: Constipation Stop: 01/31/24 18:14 Diphenhydramine HCl (Diphenhydramine Capsule 25 Mg Cap) 25 mg PO Q6H PRN PRN Reason: Allergic Rhinitis/Insomnia Stop: 01/31/24 18:14 Duloxetine HCl (Duloxetine Hcl 60 Mg Cap) 60 mg PO HS DELPHINE Stop: 01/31/24 20:59 Last Admin: 01/02/24 19:39 Dose: 60 mg Famotidine (Famotidine 20 Mg Tab) 20 mg PO Q12H PRN PRN Reason: Dyspepsia Stop: 01/31/24 18:14 Last Admin: 01/02/24 04:11 Dose: 20 mg Hydromorphone HCl (Hydromorphone Inj 0.5 Mg/0.5 Ml Syr) 0.5 mg IV Q3H PRN PRN Reason: MODERATE Pain (Scale 4,5,6) & Pre PT Stop: 01/15/24 18:14 Hydromorphone HCl (Hydromorphone Inj 1 Mg/Ml Syringe) 1 mg IV Q3H PRN PRN Reason: SEVERE Pain (Scale 7,8,9,10) Stop: 01/15/24 18:14 Hydroxyzine HCl (Hydroxyzine Hcl 25 Mg Tab) 25 mg PO Q8H PRN PRN Reason: Anxiety Stop: 01/31/24 18:14 Promethazine HCl (Phenergan) 12.5 mg in 50.5 mls @ 202 mls/hr IV Q6H PRN PRN Reason: Nausea And Vomiting Stop: 01/31/24 18:14 Dexamethasone 6 mg/ Syringe 1.5 mls @ 1 mls/min IV DAILY DELPHINE Stop: 01/04/24 09:02 Last Admin: 01/03/24 08:09 Dose: 1 mls/min Influenza Virus Vaccine Quadrival (Do Not Administer Flu Vaccine) 1 each N/A PRN PRN PRN Reason: Notification Stop: 01/31/24 18:14 Lisinopril (Lisinopril 10 Mg Tab) 10 mg PO QPM [facility] Stop: 01/31/24 20:59 Last Admin: 01/01/24 20:15 Dose: 10 mg Lorazepam (Lorazepam 0.5 Mg Tab) 0.5 mg PO Q8H PRN PRN Reason: Sedation/Anxiety Stop: 01/31/24 18:14 Last Admin: 01/02/24 19:39 Dose: 0.5 mg Lorazepam (Lorazepam 2 Mg/1 Ml Vial) 0.5 mg IV Q8H PRN PRN Reason: Sedation/Anxiety Stop: 01/31/24 18:14 Magnesium Hydroxide (Magnesium Hydroxide Susp 30 Ml Udc) 30 ml PO Q24H PRN PRN Reason: Constipation Stop: 01/31/24 18:14 Metoclopramide HCl (Metoclopramide Hcl Inj 5 Mg/Ml 2 Ml Vial) 10 mg IV Q6H PRN PRN Reason: Nausea &/or Vomiting Stop: 01/31/24 18:14 Multivitamins (Multivitamin Tab) 1 tab PO QAM [facility] Stop: 02/01/24 08:59 Last Admin: 01/02/24 08:27 Dose: 1 tab Naloxone HCl (Naloxone Hcl 0.4 Mg/1 Ml Vial/Carp) 0.1 mg IV Q5M PRN PRN Reason: Oversedation/Resp depression Stop: 01/31/24 18:14 Ondansetron HCl (Ondansetron Inj 2 Mg/Ml 2 Ml Vial) 4 mg IV Q6H PRN PRN Reason: Nausea &/or Vomiting Stop: 01/31/24 18:14 Ondansetron HCl (Ondansetron 4 Mg Od Tab) 4 mg PO Q6H PRN PRN Reason: Nausea Stop: 01/31/24 18:14 Oxycodone HCl (Oxycodone Hcl Ir 5 Mg Tab (Immediate Release)) 5 - 10 mg PO Q4H PRN PRN Reason: Pain & Pre PT Stop: 01/15/24 18:14 Last Admin: 01/03/24 06:29 Dose: 10 mg Pneumococcal Polyvalent Vaccine (Do Not Administer Pneumococcal Vaccine) 1 each N/A PRN PRN PRN Reason: Notification Stop: 01/31/24 18:14 Polyethylene Glycol (Polyethylene (Miralax) 17 Gm Pack) 17 gm PO Q6 DELPHINE Stop: 02/01/24 05:59 Last Admin: 01/03/24 05:55 Dose: 17 gm Pramipexole Dihydrochloride (Pramipexole Dihydrochlo 0.5 Mg Tab) 1.5 mg PO QDL [facility] Stop: 02/01/24 11:29 Last Admin: 01/02/24 11:40 Dose: 1.5 mg Ropinirole HCl (Ropinirole Hcl 2 Mg Tablet) 2 mg PO DAILY@1900 [facility] Stop: 01/31/24 18:59 Last Admin: 01/02/24 17:53 Dose: 2 mg Senna/Docusate Sodium (Docusate Sodium/Senna 50/8.6mg Tab) 2 tab PO HS [facility] Stop: 01/31/24 20:59 Last Admin: 01/02/24 19:41 Dose: Not Given Sodium Biphosphate/Sodium Phosphate (Sod Phosphate/Sod Biphosphate Enema 132 Ml Btl) 132 ml ND ONE PRN PRN Reason: Constipation Stop: 01/31/24 18:14 Tramadol HCl (Tramadol Hcl 50 Mg Tablet) 50 - 100 mg PO Q4H PRN PRN Reason: Moderate-Severe pain & Pre PT Stop: 01/31/24 18:14 Last Admin: 01/03/24 08:03 Dose: 100 mg (4) Depression Depression Type: unspecified Qualified Code(s): F32.A - Depression, unspecified
--- NOTE | 2024-01-03 12:01 | Orthopedic Progress Note ---
Date of Service January 03, 2024 Assessment & Plan (1) Neurogenic claudication due to lumbar spinal stenosis: Plan: At this time we will continue physical therapy as tolerated. Monitor CIRA output. May consider further workup for left hip pathology pending her progress. Admission and Anticipated Discharge Date Admission Date: January 01, 2024 Subjective Patient's back pain is controlled. She struggling with left groin pain. Is worse with sitting. Denies any numbness or tingling to the extremities. Physical Exam Physical Exam: On exam she is good strength testing. There is a positive logroll on the left compared to the right side. Sensory is intact. Results & Data Vital Signs (Past 12 Hours) Vital Signs Temp Pulse Resp BP Pulse Ox O2 Del Method 01/03/24 07:12 36.6 C 78 22 100/66 94 Room Air Queries Orthopedic Spine Obesity: Yes
[2024-01-04 06:34] LABS: Hematocrit (blood only) 33.8 % (37.0-47.0); Hemoglobin 11.1 g/dl (12.0-16.0); Mean Corpuscular Hemoglobin 31.4 pg (25.0-34.0); Mean Corpuscular Hgb Conc 32.8 g/dL (32.0-36.0); Mean Corpuscular Volume 95.5 fL (80.0-100.0); Mean Platelet Volume 10.7 fL (9.4-12.4); Platelet Count 164 K/uL (130-400); RDW Coefficient of Variation 13.5 % (11.5-14.5); RDW Standard Deviation 47.8 fL (36.4-46.3); Red Blood Count 3.54 M/uL (4.20-5.40); White Blood Count 10.35 K/ul (4.8-10.8)
[2024-01-04 07:15] VITALS: BP 109/72; PULSE 86; RESP 18; TEMP 97.9; O2SAT 93
[2024-01-04] MEDS: GABAPENTIN 300 MG CAP PO SCH (09:54)
--- NOTE | 2024-01-04 10:22 | Discharge Summary ---
Date of Service January 04, 2024 Admission HPI Per Admitting Provider this is a 68-year-old female known to me the presents with worsening back and leg pain after failing course of nonoperative care she is here for surgical invention. 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 Discharge Data Allergies Allergy/AdvReac Type Severity Reaction Status Date / Time nickel Allergy Intermediate Rash Verified 01/01/24 09:38 Penicillins Allergy Intermediate Hives Verified 01/01/24 09:38 Consultations 01/01/24 18:15 Consult Hospitalist Routine Procedures Performed Operation Date: 01/01/24 11:35 Actual Procedures p T11- L2 Decompression and Fusion, Spinal Cord Monitoring(Not Applicable) - Ziyad Galvez DO s Spinal Cord Stimulator Removal(Not Applicable) - Ziyad Galvez DO Ordered Studies 01/01/24 11:35 FL lumbar spine 2-3V Routine 01/03/24 08:30 CT abd pelvis wo con Stat Hospital Course (1) Neurogenic claudication due to lumbar spinal stenosis: Patient underwent thoracolumbar decompression fusion tolerated this well was taken to orthopedic for postoperative. Post ablation progressed appropriately. Leg symptoms improved. CIRA drain decreasing. Excellent strength testing. Simply discharged home. Discharge orders instructions from the chart for further review. Total Time Total Time Spent Total Time Spent (In Minutes): 20 minutes Discharge Plan Discharge Items Patient Disposition: Home - Self-Care Reason For Visit: Spinal Stenosis of Lumbar Region with Radiculopath Discharge Diagnosis: Lumbar spinal stenosis with neurogenic claudication Activity: As commented below Non-emergency contact: Primary Care Provider Call non-emergency contact if: you have any medication questions Follow-up/Referrals: Lulú Nowak PA-C [Primary Care Provider] - Diet: Regular Addtl Attending Provider Instructions: ACTIVITY RECOMMENDATIONS: SELF CARE INSTRUCTIONS AFTER THORACIC/LUMBAR FUSIONS 1. You may walk to your tolerance. It is good exercise for your legs and back. Expect some back and intermittent leg aches and pains. 2. You may perform "counter-top" level activities (make a sandwich, evaristo with a project, etc.). 3. No bending or lifting of more than 10 pounds or back twisting of any nature (roll like a log when turning in bed). 4. You may ride in a car for 20-30 minutes at a time. No driving until after your first visit with your doctor. 5. Frequent changes of position and restricting sitting to 30 minutes at a time will help limit the amount of back spasms and stiffness you may experience. 6. You may discontinue the use of ambulatory aids (cane, crutches, etc.) once your strength and confidence allow. 7. You may light out examiner the shower and let water strike your incision when you arri ve home at least once daily. Do not take a tub bath, sit in a hot tub or go into a swimming pool until after your first recheck in the office. 8. You may resume previous diet. SPECIAL CARE INSTRUCTIONS: VERY IMPORTANT TO READ AND REVIEW A. Your surgical incision has been closed with a cosmetic suture under the skin that will dissolve in about 6 weeks. In 14 days, you can use a pair of clean scissors and cut the suture that is left outside of the skin at the ends of your incision. 1. The small skin tapes can be removed 7 days after surgery if they have not fallen off by that point. 2. You may keep the wound open to air as much as possible to promote healing after post-op day number 5 unless told otherwise by your doctor. 3. If you think the wound looks like it is becoming infected (redness or worsening drainage) and/or you are experiencing fever, chill or worsening back pain and muscle spasms, contact the office so that we may evaluate you as soon as possible. B. Complications are uncommon, but please contact us if you have any signs or symptoms of: 1. wound infection (fever higher than 102.5 degrees F, redness, separation of wound, drainage, or increasing pain from the incision) 2. blood clots in legs (pain, swelling, redness and warmth in legs) 3. urinary tract infection (fever higher than 102.5 degrees F, burning upon urination or increased frequency of urination) 4. nerve problems (inability to walk on your toes or heels, numbness, loss of bowel or bladder control) 5. any other symptoms that concern you C. Please call the office at if you have any concerns or questions about your operation or recovery. D. No smoking! Smoking drastically decreases the chance of a solid fusion. E. Do not take any anti-inflammatory medications (Indocin, Advil, Motrin, Aspirin, Naprosyn, etc.) as these may inhibit the chance of a solid fusion. Tylenol is okay to take for pain. MANAGING PAIN AFTER SPINAL SURGERY 1. Narcotic medication is intended for short-term use and will be provided for surgical pain. Surgical pain usually lasts for a period of 4-6 weeks. Narcotic medication includes Percocet, Vicodin, Darvocet, Tylenol #3 or Lortab. 2. Longer-term pain is more appropriately treated with non-narcotic medication such as Tylenol ES. 3. Muscle spasm is not appropriately treated with narcotics. Muscle relaxers such as Soma, Flexeril or Skelaxin can be used along with Tylenol ES. 4. Remember that we all live with some "aches and pains". This is not unusual or uncommon after an injury or as we get older. a. Back pain is expected and may include muscle spasms for 4 to 6 weeks after surgery. The pain should gradually improve. If the pain worsens for no apparent reason, please contact the office. b. Intermittent leg pain may also be experienced and should not be concerned about unless it worsens for no apparent reason. If so, please contact the office. 5. We will provide appropriate medication within the normal guidelines of their prescribed use. We will also be very cautious and aware of potential abuse and extended duration of patients' medication needs. a. Pain medications are for your comfort and to assist with sleep and rest so that the tissue can heal. They are not provided in order to return to normal activity and should not be used through the day. To do so or worsening pain at night can result from ongoing tissue damage and development of tolerance to the prescribed medicine. 6. Please allow 2-3 days to process refills. Prescriptions will not be mailed but must be picked up at the office. FOLLOW UP VISIT: Keep your scheduled follow-up appointment. Any questions, please call the office at . Pending Studies at Discharge: No Stand-Alone Forms: My [employer], Smoking Cessation Medications and HI Order Prescriptions: New tramadol 50 mg tablet 50 mg PO Q6H PRN (Reason: pain, moderate) Qty: 30 0RF oxycodone 5 mg tablet 5 mg PO Q6H PRN (Reason: pain) Qty: 30 0RF Continued atorvastatin [Lipitor] 20 mg Tablet 20 mg PO HS meloxicam 15 mg Tablet 15 mg PO QPM lisinopril 10 mg Tablet 10 mg PO QPM duloxetine 60 mg Capsule,Delayed Release(Dr/Ec) 60 mg PO HS acetaminophen 500 mg Tablet 1,500 mg PO Q6H PRN (Reason: Pain) ropinirole 1 mg Tablet 2 mg PO HS Rx Instructions: administer 1-3 hours before bedtime multivitamin Tablet 1 tab PO DAILY pramipexole 1.5 mg tablet 1.5 mg PO QDL Vitamin K With D3 1 tab PO BID Patient Comments: "Dr. Galvez recommended it preop for upcoming procedure 01/01/24" Discharge Orders: Discharge Order (Routine); Ordered 01/04/24 Ordered By: Ziyad Galvez Admission Data Admit Date/Time: 01/01/24 16:13 Attending Provider: Ziyad Galvez Admit Provider: Ziyad Galvez Primary Care Provider: Lulú Nowak Other Providers: Yari Buenrostro; Sheela Doss
--- NOTE | 2024-01-04 12:23 | Hospitalist Progress Note ---
Date of Service January 04, 2024 Assessment & Plan (1) Neurogenic claudication due to lumbar spinal stenosis: (2) Hypertension: (3) Anxiety: (4) Depression: (5) GERD (gastroesophageal reflux disease): Plan 68 year old female that presented to the [facility] for an elective T11-L2 decompression and fusion surgery with spinal cord stimulator removal under the care of Dr. Galvez after failed non-operative conservative management. Past medical history includes HTN, HLD, depression, RLS. Neurogenic claudication due to lumbar spinal stenosis: S/p T11-L2 decompression and fusion surgery with spinal cord stimulator removal under the care of Dr. Galvez. POD 3 Pain is controlled Post op Hb 11.1 on discharge PT/OT eval Inguinal/Pelvic Pain CT a/p to r/o nephrolithiasis --CT a/p noted the following "No urinary calculi or hydronephrosis.2. Distended gallbladder without pericholecystic infiltration. If right upper quadrant pain, ultrasound is recommended.3. No bowel obstruction. Sigmoid diverticulosis. No evidence for cute diverticulitis.4. 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 Stated that she was being discharged today Denied any concerns Denied any chest pain, shortness of breath. Noted that she was having bowel movements and passing gas. Review of Systems Review of Systems: All systems reviewed & are unremarkable except as noted in Subjective Physical Exam Physical Exam: General: Alert, oriented. No acute distress Psych: Appropriate mood and affect Neuro: No gross deficits HEENT: NC/AT CV: RRR Resp: Breath sounds clear bilaterally, no increased effort of breathing Abdomen: Soft, nontender Extremities: compression stockings on lower extremities bilaterally. Results & Data Results & Data Vital Signs (Past 12 Hours) Vital Signs Temp Pulse Resp BP Pulse Ox O2 Del Method 01/04/24 07:14 36.6 C 86 18 109/72 93 Room Air Diagnostic Findings Lumbar Spine X-Ray 01/01/24 11:35 FL lumbar spine 2-3V CLINICAL HISTORY: T11-L2 DECOMPRESSION AND FUSION COMPARISON STUDY: Lumbar spine CT April 11, 2019. Lumbar spine fluoroscopic images February 05, 2020. FLUOROSCOPY TIME: 41 seconds. Ka,r: 21.91 mGy FLUOROSCOPIC IMAGES: 3 FINDINGS: Exact localization is not possible given partial visualization of the lumbar spine. These images partially visualize a thoracolumbar spine fusion and decompression with discectomy and interbody spacer placement. Visualized po rtions of the hardware are intact. IMPRESSION: Fluoroscopy provided during multilevel decompression and fusion. ACT 112: Negative or not required by law. Electronically signed by: Gilles Ruvalcaba M.D. 01/01/2024 4:08 PM Abdomen/Pelvis CT 01/03/24 08:30 CT OF THE ABDOMEN AND PELVIS WITHOUT CONTRAST CLINICAL HISTORY: LLQ/pubic pain COMPARISON STUDY: MRI of the pelvis July 26, 2021. TECHNIQUE: Axial images of the abdomen and pelvis were obtained without IV contrast. Images were reviewed in the axial, sagittal, and coronal planes. Automated exposure control was utilized for the study. A dose lowering technique was utilized adhering to the principles of ALARA. FINDINGS: Subpleural opacities represent atelectasis. There are trace bilateral pleural effusions. Postoperative findings within the spine are noted. A gas and fluid containing right flank collection represents previous site of spinal cord stimulator which has been removed. There are no urinary calculi. There is no hydronephrosis. Evaluation of the remainder of the abdomen and pelvis is suboptimal on this unenhanced exam. There is no evidence for a bowel obstruction. The gallbladder is distended without pericholecystic infiltration. Liver, spleen, adrenal glands and pancreas are unremarkable. A fat-containing left adnexal lesion is unchanged since MRI. This measures 2.9 cm and contains a radiodensity consistent with a tooth. There is no free fluid. Sigmoid diverticulosis is present. There is no evidence for acute diverticulitis. Moderate sized hiatal hernia is present. IMPRESSION: 1. No urinary calculi or hydronephrosis. 2. Distended gallbladder without pericholecystic infiltration. If right upper quadrant pain, ultrasound is recommended. 3. No bowel obstruction. Sigmoid diverticulosis. No evidence for acute diverticulitis. 4. 2.9 cm left ovarian dermoid. ACT 112: Negative or not required by law. Electronically signed by: Gilles Ruvalcaba M.D. 01/03/2024 10:15 AM (4) Depression Depression Type: unspecified Qualified Code(s): F32.A - Depression, unspecified
== END 2024-01-04 12:16 | disposition home or self-care (01) | DRG 428 ==
LOC: ASU 08:49 → 3N 16:13